=== PATIENT | female | born 1985 | race Caucasian/White ===

== ENCOUNTER 2021-10-17 15:30 | Observation (INO) | payer BC, SELFPAY ==
[2021-10-17] VITALS (7 sets, daily range): BP systolic 93–129; BP diastolic 58–85; PULSE 52–114; RESP 12–20; TEMP 36.1–38.2; O2SAT 95–100; BMI 21.8
[2021-10-17] MEDS: droperidoL 2.5 MG/ML inj IV (17:57)
[2021-10-17] MEDS: 0.9 % SODIUM CHLORIDE 1000 ml 1,000 ML IV (17:58)
[2021-10-17] MEDS: LORazepam 2 MG/ML inj 1 MG IVP (17:58)
--- NOTE | 2021-10-17 18:03 | ED.GENADULT ---
HPI - General Adult General Date Seen: 10/17/21 Chief complaint: Nausea/Vomiting Stated complaint: Vomiting Time Seen by Provider: 10/17/21 17:07 Source: patient Limitations: no limitations History of Present Illness HPI narrative: 36-year-old female presents with onset of abdominal pain and intractable vomiting starting last evening. She has had a history of chronic recurrent abdominal pain and vomiting. She has been diagnosed with cyclic vomiting, gastroparesis, lymphocytic colitis. She has had recurrent hospital visits for this. Last hospitalized here in March for complications of vomiting. No blood in the emesis. No blood in the stool. She is not aware evaluating a fever. She reports she was generally doing well yesterday until she went out last night and had pizza, Frisian fries and a vodka cranberry. After this she had abdominal pain and vomiting and it has persisted till now. she has not been able to keep anything down today. Related Data Home Medications Medication Instructions Recorded Confirmed cyclobenzaprine 10 mg tablet mg 10/17/21 Allergies Allergy/AdvReac Type Severity Reaction Status Date / Time cyclobenzaprine Allergy Verified 10/17/21 16:49 [From Flexeril] Sulfa (Sulfonamide Allergy Verified 10/17/21 16:49 Antibiotics) Review of Systems Narrative: She reports she was doing well until last evening. No respiratory illness, chest pain, urinary problems. [facility] Medical History (Updated 10/17/21 @ 22:35 by Jimmy Weston MD) Cyclic vomiting syndrome Gastroparesis Lymphocytic colitis Marijuana abuse Social History (Updated 10/17/21 @ 18:15 by Jimmy Weston MD) Narrative: History of chronic marijuana use. Exam Narrative: Exam Narrative: She appears uncomfortable moving from says sitting to lying down standing up and moving about the room. Eyes normal. Oropharynx normal. Neck is supple without mass or adenopathy. Respirations are clear to auscultation. Cardiovascular: S1, S2, regular rate and rhythm. No murmur gallop or rub. Abdomen: Bowel sounds active. Abdomen is soft. She has mild diffuse tenderness. No mass. No peritonitis. Extremities with good peripheral pulses and intact capillary refill. No edema. No rash. Const: Vital Signs, click to edit/add: Vital Signs - 24 hr 10/17/21 16:49 10/17/21 19:00 10/17/21 20:53 Temperature 96.9 F L 100.8 F H Pulse Rate [Right Pulse Oximeter] 52 L 90 114 H Respiratory Rate 18 12 18 Blood Pressure [Ri ght Upper Arm] 129/82 114/85 Pulse Oximetry 100 99 99 Documenting provider has reviewed patient's vital signs: yes Course Reevaluation(s) Reevaluation #1: Patient reports feeling better. No further vomiting. Reexamine of her abdomen shows no tenderness. Time: 20:30 Vital Signs Vital signs: Initial Vital Signs Temperature 96.9 F L 10/17/21 16:49 Temperature Source Temporal Artery Scan 10/17/21 16:49 Pulse Rate 52 L 10/17/21 16:49 Respiratory Rate 18 10/17/21 16:49 Blood Pressure 129/82 10/17/21 16:49 Blood Pressure Mean 97 10/17/21 16:49 Blood Pressure Position Sitting 10/17/21 16:49 Pulse Oximetry 100 10/17/21 16:49 Oxygen Delivery Method 10/17/21 16:49 Vital Signs Temperature 96.9 F L 10/17/21 16:49 Pulse Rate 52 L 10/17/21 16:49 Respiratory Rate 18 10/17/21 16:49 Blood Pressure 129/82 10/17/21 16:49 Pulse Oximetry 100 10/17/21 16:49 Temperature 100.8 F H 10/17/21 20:53 Pulse Rate 114 H 10/17/21 20:53 Respiratory Rate 18 10/17/21 20:53 Blood Pressure 114/85 10/17/21 20:53 Pulse Oximetry 99 10/17/21 20:53 Medical Decision Making Lab Data Labs: Lab Results 10/17/21 10/17/21 10/17/21 Range/Units 17:55 17:55 17:55 WBC 21.61 H (4.50-11.00) K/uL RBC 4.69 (4.00-5.20) m/uL Hgb 14.0 (12.0-16.0) gm/dL Hct 39.8 (33.0-51.0) % MCV 85 (80-100) fL MCH 30 (26-34) pg MCHC 35 (32-36) gm/dL RDW Coeff of Maria Guadalupe 11.9 (11.5-15.5) % Plt Count 431 (140-440) K/uL Neut % (Auto) 91.4 H (42.0-72.0) % Lymph % (Auto) 3.6 L (20-44) % [place] % (Auto) 4.5 (0.0-11.0) % Eos % (Auto) 0.0 (0.0-7.0) % Baso % (Auto) 0.1 (0.0-3.0) % Neut # (Auto) 19.80 H (1.7-7.0) K/uL Lymph # (Auto) 0.80 L (0.90-2.90) K/uL [place] # (Auto) 1.00 H (0.00-0.90) K/UL Eos # (Auto) 0.00 (0.00-0.50) K/uL Baso # (Auto) 0.00 (0.00-0.30) K/uL Abs Immat Gran (auto) 0.09 (0.00-0.30) K/uL Sodium 140 (135-149) mmol/L Potassium 3.9 (3.6-5.1) mmol/L Chloride 104 (96-114) mmol/L Carbon Dioxide 22 (20-32) mmol/L BUN 13 (5-24) mg/dL Creatinine 0.7 (0.5-1.5) mg/dL Estimated Creat Clear 103.01 Estimated GFR 114 ml/min Glucose 181 H (60-115) mg/dL Lactate 5.5 H* (0.5-1.9) mmol/L Calcium 9.6 (8.4-10.6) mg/dL Magnesium 1.8 (1.5-2.6) mg/dL Total Bilirubin 0.7 (0.1-1.5) mg/dL AST 35 (12-35) U/L ALT 64 H (4-35) U/L Alkaline Phosphatase 72 (40-150) U/L C-Reactive Protein < 0.5 L (0.5-1.0) mg/dL Total Protein 8.2 (6.0-8.3) g/dL Albumin 5.2 H (3.3-5.0) g/dL Lipase 22 L (23-300) U/L HCG, Qual (Negative) Urine Color (Yellow) Urine Appearance (Clear) Urine pH (5.0-8.5) Ur Specific [place] (1.000-1.030) Urine Protein (Negative) Urine Glucose (UA) (Negative) Urine Ketones (Negative) Urine Blood (Negative) Urine Nitrite (Negative) Urine Bilirubin (Negative) Urine Urobilinogen (0.2-1.0) Ur Leukocyte Esterase (Negative) Urine RBC (0-2) Urine WBC (0-5) Ur Squamous Epith Cells (None-Few) Urine Bacteria (None) SARS-CoV-2 (PCR) (Negative) 10/17/21 10/17/21 10/17/21 Range/Units 17:55 19:26 19:39 WBC 15.47 H (4.50-11.00) K/uL RBC 4.05 (4.00-5.20) m/uL Hgb 12.3 (12.0-16.0) gm/dL Hct 34.6 (33.0-51.0) % MCV 85 (80-100) fL MCH 30 (26-34) pg MCHC 36 (32-36) gm/dL RDW Coeff of Maria Guadalupe 12.0 (11.5-15.5) % Plt Count 326 (140-440) K/uL Neut % (Auto) 90.7 H (42.0-72.0) % Lymph % (Auto) 3.9 L (20-44) % [place] % (Auto) 4.9 (0.0-11.0) % Eos % (Auto) 0.0 (0.0-7.0) % Baso % (Auto) 0.1 (0.0-3.0) % Neut # (Auto) 14.00 H (1.7-7.0) K/uL Lymph # (Auto) 0.60 L (0.90-2.90) K/uL [place] # (Auto) 0.80 (0.00-0.90) K/UL Eos # (Auto) 0.00 (0.00-0.50) K/uL Baso # (Auto) 0.00 (0.00-0.30) K/uL Abs Immat Gran (auto) 0.06 (0.00-0.30) K/uL Sodium (135-149) mmol/L Potassium (3.6-5.1) mmol/L Chloride (96-114) mmol/L Carbon Dioxide (20-32) mmol/L BUN (5-24) mg/dL Creatinine (0.5-1.5) mg/dL Estimated Creat Clear Estimated GFR ml/min Glucose (60-115) mg/dL Lactate (0.5-1.9) mmol/L Calcium (8.4-10.6) mg/dL Magnesium (1.5-2.6) mg/dL Total Bilirubin (0.1-1.5) mg/dL AST (12-35) U/L ALT (4-35) U/L Alkaline Phosphatase (40-150) U/L C-Reactive Protein (0.5-1.0) mg/dL Total Protein (6.0-8.3) g/dL Albumin (3.3-5.0) g/dL Lipase (23-300) U/L HCG, Qual Negative (Negative) Urine Color Yellow (Yellow) Urine Appearance Clear (Clear) Urine pH 7.5 (5.0-8.5) Ur Specific [place] 1.020 (1.000-1.030) Urine Protein 1+ A (Negative) Urine Glucose (UA) Negative (Negative) Urine Ketones 4+ A (Negative) Urine Blood Negative (Negative) Urine Nitrite Negative (Negative) Urine Bilirubin Negative (Negative) Urine Urobilinogen 0.2 (0.2-1.0) Ur Leukocyte Esterase Negative (Negative) Urine RBC 0-2 (0-2) Urine WBC 0-2 (0-5) Ur Squamous Epith Cells Few (None-Few) Urine Bacteria None (None) SARS-CoV-2 (PCR) (Negative) 10/17/21 10/17/21 Range/Units 19:39 21:20 WBC (4.50-11.00) K/uL RBC (4.00-5.20) m/uL Hgb (12.0-16.0) gm/dL Hct (33.0-51.0) % MCV (80-100) fL MCH (26-34) pg MCHC (32-36) gm/dL RDW Coeff of Maria Guadalupe (11.5-15.5) % Plt Count (140-440) K/uL Neut % (Auto) (42.0-72.0) % Lymph % (Auto) (20-44) % [place] % (Auto) (0.0-11.0) % Eos % (Auto) (0.0-7.0) % Baso % (Auto) (0.0-3.0) % Neut # (Auto) (1.7-7.0) K/uL Lymph # (Auto) (0.90-2.90) K/uL [place] # (Auto) (0.00-0.90) K/UL Eos # (Auto) (0.00-0.50) K/uL Baso # (Auto) (0.00-0.30) K/uL Abs Immat Gran (auto) (0.00-0.30) K/uL Sodium (135-149) mmol/L Potassium (3.6-5.1) mmol/L Chloride (96-114) mmol/L Carbon Dioxide (20-32) mmol/L BUN (5-24) mg/dL Creatinine (0.5-1.5) mg/dL Estimated Creat Clear Estimated GFR ml/min Glucose (60-115) mg/dL Lactate 3.4 H (0.5-1.9) mmol/L Calcium (8.4-10.6) mg/dL Magnesium (1.5-2.6) mg/dL Total Bilirubin (0.1-1.5) mg/dL AST (12-35) U/L ALT (4-35) U/L Alkaline Phosphatase (40-150) U/L C-Reactive Protein (0.5-1.0) mg/dL Total Protein (6.0-8.3) g/dL Albumin (3.3-5.0) g/dL Lipase (23-300) U/L HCG, Qual (Negative) Urine Color (Yellow) Urine Appearance (Clear) Urine pH (5.0-8.5) Ur Specific [place] (1.000-1.030) Urine Protein (Negative) Urine Glucose (UA) (Negative) Urine Ketones (Negative) Urine Blood (Negative) Urine Nitrite (Negative) Urine Bilirubin (Negative) Urine Urobilinogen (0.2-1.0) Ur Leukocyte Esterase (Negative) Urine RBC (0-2) Urine WBC (0-5) Ur Squamous Epith Cells (None-Few) Urine Bacteria (None) SARS-CoV-2 (PCR) Negative SARS-CoV-2 (Negative) Discharge Plan Discharge Clinical Impression: Fever, Cyclical vomiting, intractable Patient Disposition: Admitted As Inpatient
[2021-10-17 18:09] LABS: Basophils Percent Auto 0.1 % (0.0-3.0); Hematocrit 39.8 % (33.0-51.0); Immature Granulocytes Abs Auto 0.09 K/uL (0.00-0.30); Lymphocytes Percent Auto 3.6 % (20-44); Mean Corpuscular HGB Conc 35 gm/dL (32-36); Mean Corpuscular Hemoglobin 30 pg (26-34); Mean Corpuscular Volume 85 fL (80-100); Monocytes Percent Auto 4.5 % (0.0-11.0); Neutrophils Percent Auto 91.4 % (42.0-72.0); Platelet Count* 431 K/uL (140-440); RDW Coefficient of Variation % 11.9 % (11.5-15.5); Red Blood Count 4.69 m/uL (4.00-5.20); White Blood Count* 21.61 K/uL (4.50-11.00)
[2021-10-17 18:10] LABS: Lactate* 5.5 mmol/L (0.5-1.9)
[2021-10-17 18:15] LABS: Slide Review Reflex No
[2021-10-17 18:21] LABS: Albumin* 5.2 g/dL (3.3-5.0); Chloride* 104 mmol/L (96-114)
[2021-10-17 18:22] LABS: Potassium* 3.9 mmol/L (3.6-5.1); Sodium* 140 mmol/L (135-149)
[2021-10-17 18:24] LABS: Alkaline Phosphatase* 72 U/L (40-150); Aspartate Amino Transferase* 35 U/L (12-35); Bilirubin Total* 0.7 mg/dL (0.1-1.5); Blood Urea Nitrogen* 13 mg/dL (5-24); Carbon Dioxide* 22 mmol/L (20-32); Creatinine* 0.7 mg/dL (0.5-1.5); Est. Creatinine Clearance* 103.01; Estimated Glomerular Filt Rate 114 ml/min; Lipase* 22 U/L (23-300); Total Protein* 8.2 g/dL (6.0-8.3)
[2021-10-17 18:25] LABS: Alanine Aminotransferase* 64 U/L (4-35); Calcium* 9.6 mg/dL (8.4-10.6); Glucose* 181 mg/dL (60-115); Magnesium* 1.8 mg/dL (1.5-2.6)
[2021-10-17 18:27] LABS: C Reactive Protein* < 0.5 mg/dL (0.5-1.0)
[2021-10-17 19:33] LABS: Appearance Urine Clear (Clear); Bilirubin Urine Negative (Negative); Blood Urine Negative (Negative); Color Urine Yellow (Yellow); Glucose Urine Negative (Negative); Ketones Urine 4+ (Negative); Leukocyte Esterase Urine Negative (Negative); Nitrite Urine Negative (Negative); Protein Urine 1+ (Negative); Urobilinogen Urine 0.2 (0.2-1.0); pH Urine 7.5 (5.0-8.5)
[2021-10-17] MEDS: LACTATED RINGERS 1000 ML 1,000 ML IV (19:33)
[2021-10-17 19:41] LABS: Lactate* 3.4 mmol/L (0.5-1.9)
[2021-10-17 19:47] LABS: Basophils Percent Auto 0.1 % (0.0-3.0); Hematocrit 34.6 % (33.0-51.0); Hemoglobin* 12.3 gm/dL (12.0-16.0); Immature Granulocytes Abs Auto 0.06 K/uL (0.00-0.30); Lymphocytes Percent Auto 3.9 % (20-44); Mean Corpuscular HGB Conc 36 gm/dL (32-36); Mean Corpuscular Hemoglobin 30 pg (26-34); Mean Corpuscular Volume 85 fL (80-100); Monocytes Percent Auto 4.9 % (0.0-11.0); Neutrophils Percent Auto 90.7 % (42.0-72.0); Platelet Count* 326 K/uL (140-440); Red Blood Count 4.05 m/uL (4.00-5.20); White Blood Count* 15.47 K/uL (4.50-11.00)
[2021-10-17 19:47] LABS: RBC Urine 0-2 (0-2); Squamous Epithelial Cell Urine Few (None-Few); WBC Urine 0-2 (0-5)
[2021-10-17 19:50] LABS: Slide Review Reflex No
[2021-10-17 21:32] LABS: HCG Qualitative Serum* Negative (Negative)
[2021-10-17] MEDS: PROMETHAZINE 25 MG/ML INJ 12.5 MG IVP (21:34)
[2021-10-17 22:23] LABS: SARS PCR* Negative SARS-CoV-2 (Negative)
--- NOTE | 2021-10-17 22:48 | P.IMHP_ITS ---
Hospitalist- H&P: HPI History of Present Illness Time Seen by Provider: 22:48 Date Seen: 10/17/21 Chief complaint: Vomiting Narrative: Tamia Peterson is a 36 year old female who presented to the emergency room today for intractable vomiting. She has a known history of cyclic vomiting syndrome, notes that this is a typical presentation for a flare. She follows with [facility], has been found to have some mild gastroparesis, and is to be following a specific diet. Ate at [employer] last night and had pizza with a vodka cranberry drink (not typical for her), had symptoms immediately thereafter. Her primary symptom is vomiting, although she has had some intermittent diarrhea. She has had no blood per rectum or hematemesis. She has no other signs or symptoms of illness, no recent travel, and no one at home is ill. She had a mild headache this morning that has resolved with IV fluids, she denies any acute skin concerns, and has no dysuria. ER course and findings: - Temperature of 100.8? (patient does not feel that she was febrile, denies any lateralizing symptoms of illness) - elevated white blood count and lactate (both improved after IV fluid administration) - normal potassium (often is hypokalemic with these episodes) - reassuring UA with the exception of ketones (treated for a UTI with PCP in August, + bacteriuria at that time, was symptomatic) - in addition to IV fluids, given droperidol, Phenergan, and lorazepam with mild relief, but was still unable to tolerate any po intake without immediately vomiting Patient's medical history includes cyclic vomiting syndrome, related to cannabis use. She had stopped using in March, but started smoking again this spring after being diagnosed with melanoma ([facility]). She sees [facility], and last saw them in August of 2021. At that time Phenergan was recommended as a pretreatment prior to eating dinner, in addition to famotidine at bedtime, and a to specific gastroparesis diet. She also has a history of IBS, remote history of lymphocytic colitis, and is a . LMP was last week. She is s/p appendectomy. Tamia lives locally with her and has 3 children, the youngest of whom is 9. She does not smoke tobacco products, uses marijuana regularly, rare alcohol use. She cleans houses for a living. Review of Systems Status of ROS: Reports: 10 or more systems reviewed and unremarkable except as noted in History and below [facility] Medical History (Updated 10/17/21 @ 23:14 by Abiola Cardenas MD) Cyclic vomiting syndrome Gastroparesis Lymphocytic colitis Marijuana abuse Social History (Updated 10/17/21 @ 18:15 by Jimmy Weston MD) Narrative: History of chronic marijuana use. Meds Home Medications and Allergies Home Medications Medication Instructions Recorded Confirmed Type cyclobenzaprine 10 mg tablet mg 10/17/21 History Allergies Allergy/AdvReac Type Severity Reaction Status Date / Time cyclobenzaprine Allergy Verified 10/17/21 16:49 [From Flexeril] Sulfa (Sulfonamide Allergy Verified 10/17/21 16:49 Antibiotics) Exam Narrative: Exam Narrative: GEN: Alert and laying in hospital bed, does not appear toxic, but is sleepy HEENT: Normal external ears, EOMIs bilaterally, no scleral icterus CV: RRR, No concerning murmurs, rubs, or gallops R: LCTA bilaterally without concerning wheezing, rales, or rhonchi Abdomen: Soft, no discomfort with moderate palpation, no rebound or guarding. Bowel sounds present Ext: wwp, no concerning edema Skin: No concerning skin lesions or rashes on exposed skin. Scar on upper back from recent melanoma excision appears well healed without signs or symptoms of cellulitis Neuro: Nonfocal, no resting tremor Psych: Appropriate Const: Vital Signs, click to edit/add: Vital Signs - 24 hr 10/17/21 16:49 10/17/21 19:00 10/17/21 20:53 Temperature 96.9 F L 100.8 F H Pulse Rate [Right Pulse Oximeter] 52 L 90 114 H Respiratory Rate 18 12 18 Blood Pressure [Ri ght Upper Arm] 129/82 114/85 Pulse Oximetry 100 99 99 Hospitalist - H&P: Result Labs Labs: Short CBC 10/17/21 10/17/21 Range/Units 17:55 19:39 WBC 21.61 H 15.47 H (4.50-11.00) K/uL Hgb 14.0 12.3 (12.0-16.0) gm/dL Hct 39.8 34.6 (33.0-51.0) % Plt Count 431 326 (140-440) K/uL [facility] 10/17/21 17:55 Sodium 140 Potassium 3.9 Chloride 104 Carbon Dioxide 22 BUN 13 Creatinine 0.7 Glucose 181 H Calcium 9.6 Liver Function 10/17/21 Range/Units 17:55 Total Bilirubin 0.7 (0.1-1.5) mg/dL AST 35 (12-35) U/L ALT 64 H (4-35) U/L Alkaline Phosphatase 72 (40-150) U/L Albumin 5.2 H (3.3-5.0) g/dL Urine 10/17/21 Range/Units 19:26 Urine Color Yellow (Yellow) Urine Appearance Clear (Clear) Urine pH 7.5 (5.0-8.5) Ur Specific [place] 1.020 (1.000-1.030) Urine Protein 1+ A (Negative) Urine Glucose (UA) Negative (Negative) Assessment and Plan Assessment and plan (1) Cyclical vomiting, intractable: Status: Acute (2) Fever: Status: Acute (3) Leukocytosis: Status: Acute Plan 36-year-old female with acute on chronic cyclic vomiting syndrome: 1. CVS: Treat with IV fluids and antiemetics. Continue to recommend cessation of marijuana. Normal potassium in the ER, will continue to follow electrolytes. 2. Fever, leukocytosis, and elevated lactate: No signs or symptoms of acute illness. Labs improved after administration of IVFs. She and both state that this is a very classic presentation for her typical CVS flare. COVID test was negative, she has no other history or findings on exam that suggest an infectious process, although we will watch her very closely and initiate antibiotics if clinical status were to change. 3. Ppx: SCDs, ambulation 4. Full Code.
[2021-10-18] VITALS (7 sets, daily range): BP systolic 98–114; BP diastolic 49–75; PULSE 56–83; RESP 16; TEMP 36.6–36.9; O2SAT 96–100
[2021-10-18] MEDS: 0.9 % SODIUM CHLORIDE 1000 ml 1,000 ML 125 ML IV ×3 (00:09→22:29)
--- NOTE | 2021-10-18 06:32 | PC.NURSE ---
END OF SHIFT NOTE: PT ARRIVED TO FLOOR @3980 ACCOMPANIED BY Geeta CHEN. PT C/O NAUSEA. LSCTA. PT DENIES CHEST PAIN AND SOB. PT FATIGUED; FALLING ASLEEP DURING ADMISSION ASSESSMENT. 20 GAUGE RIGHT AC IV INFILTRATED AND DC'D @0530. VSS ON RA. AFEBRILE. DIET ADVANCE TOLERATED. Geeta APRIL CODE . PT SHOWERED THIS AM.
[2021-10-18 07:10] LABS: Lactate* 0.8 mmol/L (0.5-1.9)
[2021-10-18 07:12] LABS: Basophils Percent Auto 0.1 % (0.0-3.0); Eosinophils Percent Auto 0.1 % (0.0-7.0); Hematocrit 34.8 % (33.0-51.0); Immature Granulocytes Abs Auto 0.06 K/uL (0.00-0.30); Lymphocytes Percent Auto 15.8 % (20-44); Mean Corpuscular HGB Conc 35 gm/dL (32-36); Mean Corpuscular Hemoglobin 30 pg (26-34); Mean Corpuscular Volume 86 fL (80-100); Monocytes Percent Auto 9.8 % (0.0-11.0); Neutrophils Percent Auto 73.9 % (42.0-72.0); Platelet Count* 347 K/uL (140-440); RDW Coefficient of Variation % 12.2 % (11.5-15.5); Red Blood Count 4.04 m/uL (4.00-5.20); White Blood Count* 17.51 K/uL (4.50-11.00)
[2021-10-18 07:14] LABS: Slide Review Reflex No
[2021-10-18 07:37] LABS: Albumin* 4.1 g/dL (3.3-5.0); Chloride* 109 mmol/L (96-114); Potassium* 3.6 mmol/L (3.6-5.1); Sodium* 138 mmol/L (135-149)
[2021-10-18 07:39] LABS: Bilirubin Total* 0.5 mg/dL (0.1-1.5); Carbon Dioxide* 21 mmol/L (20-32); Creatinine* 0.5 mg/dL (0.5-1.5); Est. Creatinine Clearance* 144.21; Estimated Glomerular Filt Rate 124 ml/min
[2021-10-18 07:40] LABS: Alanine Aminotransferase* 14 U/L (4-35); Alkaline Phosphatase* 55 U/L (40-150); Aspartate Amino Transferase* 22 U/L (12-35); Blood Urea Nitrogen* 12 mg/dL (5-24); Calcium* 8.5 mg/dL (8.4-10.6); Glucose* 108 mg/dL (60-115); Total Protein* 6.6 g/dL (6.0-8.3)
[2021-10-18] MEDS: ONDANSETRON 2 MG/ML inj 4 MG IVP ×3 (10:35→22:30)
--- NOTE | 2021-10-18 15:16 | PM.IMPN1 ---
Progress Note: A&P Assessment and plan (1) Cyclical vomiting, intractable: Status: Acute Assessment and Plan: Most likely related to marijuana exposure. May be a small element of mild gastroparesis. Again discussed the importance of her not having exposure to marijuana. She minimizes this possible link to her cyclic nausea and vomiting. Continue with IV fluids. Anesthesia was able to establish a more secure IV site. Continue with efforts to increase her oral intake. (2) Fever: Status: Acute Assessment and Plan: Resolved now. (3) Leukocytosis: Status: Acute Assessment and Plan: Still noteworthy. Will need ongoing monitoring. Plan Patient agreeable with above stated plans and recommendations for now. Continue with efforts to support her oral intake. Nutritional consultation. Time Spent With Patient Total time spent: 30 minutes Subjective Time Seen by Provider: 10:30 Date Seen: 10/18/21 Interval history: Has not had any further episodes of vomiting or retching. Still has a sense of nausea. Was able to tolerate 3 sips of water earlier today. IV was lost overnight. Unable to achieve IV access after 8 attempts overnight. Patient provides me with information suggesting that she now has gastroparesis and is seeing a subspecialists for this. Outside medical records reviewed briefly and suggest possible mild gastroparesis, idiopathic. Exam Narrative: Exam Narrative: Awake, alert, oriented to self, place, time, situation. No acute distress. Articulate. Minimizes the exposure she has had to marijuana. More focus on the gastro paresis diagnosis. Lungs clear to auscultation. Heart tones with regular rhythm. Abdomen with active bowel sounds, soft, nontender. Independent transfer, station, and gait. No dependent edema. Skin warm, dry, intact. No petechiae, rashes, cyanosis, or jaundice. Const: Vital Signs, click to edit/add: Vital Signs - 24 hr 10/17/21 16:49 10/17/21 19:00 10/17/21 20:53 Temperature 96.9 F L 100.8 F H Pulse Rate [Pulse Oximeter] Pulse Rate [Right Pulse Oximeter] 52 L 90 114 H Pulse Rate [orthos tatic lying Left] Pulse Rate [orthos tatic sitting Left ] Pulse Rate [orthos tatic standing Lef t] Respiratory Rate 18 12 18 Blood Pressure [Le ft Arm] Blood Pressure [Ri ght Upper Arm] 129/82 114/85 Blood Pressure [or thostatic lying Le ft Arm] Blood Pressure [or thostatic sitting Left Arm] Blood Pressure [or thostatic standing Left Arm] Pulse Oximetry 100 99 99 10/17/21 21:30 10/17/21 23:35 10/17/21 23:45 Temperature 99.7 F H 99.7 F H Pulse Rate [Pulse Oximeter] 72 72 Pulse Rate [Right Pulse Oximeter] 102 H Pulse Rate [orthos tatic lying Left] Pulse Rate [orthos tatic sitting Left ] Pulse Rate [orthos tatic standing Lef t] Respiratory Rate 20 20 20 Blood Pressure [Le ft Arm] 93/58 L 93/58 L Blood Pressure [Ri ght Upper Arm] 101/64 Blood Pressure [or thostatic lying Le ft Arm] Blood Pressure [or thostatic sitting Left Arm] Blood Pressure [or thostatic standing Left Arm] Pulse Oximetry 98 95 95 10/17/21 23:59 10/18/21 03:15 10/18/21 07:00 Temperature 98.5 F 98.2 F Pulse Rate [Pulse Oximeter] 83 60 Pulse Rate [Right Pulse Oximeter] Pulse Rate [orthos tatic lying Left] Pulse Rate [orthos tatic sitting Left ] Pulse Rate [orthos tatic standing Lef t] Respiratory Rate 20 16 16 Blood Pressure [Le ft Arm] 103/66 109/75 Blood Pressure [Ri ght Upper Arm] Blood Pressure [or thostatic lying Le ft Arm] Blood Pressure [or thostatic sitting Left Arm] Blood Pressure [or thostatic standing Left Arm] Pulse Oximetry 95 96 99 10/18/21 07:57 10/18/21 11:00 Temperature 98 F Pulse Rate [Pulse Oximeter] 56 L Pulse Rate [Right Pulse Oximeter] Pulse Rate [orthos tatic lying Left] 69 Pulse Rate [orthos tatic sitting Left ] 60 Pulse Rate [orthos tatic standing Lef t] 72 Respiratory Rate 16 Blood Pressure [Le ft Arm] 110/49 L Blood Pressure [Ri ght Upper Arm] Blood Pressure [or thostatic lying Le ft Arm] 104/68 Blood Pressure [or thostatic sitting Left Arm] 109/75 Blood Pressure [or thostatic standing Left Arm] 114/65 Pulse Oximetry 99 Labs Labs: Laboratory Results - last 24 hr 10/17/21 10/17/21 10/17/21 17:55 17:55 17:55 WBC 21.61 H RBC 4.69 Hgb 14.0 Hct 39.8 MCV 85 MCH 30 MCHC 35 RDW Coeff of Maria Guadalupe 11.9 Plt Count 431 Neut % (Auto) 91.4 H Lymph % (Auto) 3.6 L [place] % (Auto) 4.5 Eos % (Auto) 0.0 Baso % (Auto) 0.1 Neut # (Auto) 19.80 H Lymph # (Auto) 0.80 L [place] # (Auto) 1.00 H Eos # (Auto) 0.00 Baso # (Auto) 0.00 Abs Immat Gran (auto) 0.09 Sodium 140 Potassium 3.9 Chloride 104 Carbon Dioxide 22 BUN 13 Creatinine 0.7 Estimated Creat Clear 103.01 Estimated GFR 114 Glucose 181 H Lactate 5.5 H* Calcium 9.6 Magnesium 1.8 Total Bilirubin 0.7 AST 35 ALT 64 H Alkaline Phosphatase 72 C-Reactive Protein < 0.5 L Total Protein 8.2 Albumin 5.2 H Lipase 22 L HCG, Qual Urine Color Urine Appearance Urine pH Ur Specific [place] Urine Protein Urine Glucose (UA) Urine Ketones Urine Blood Urine Nitrite Urine Bilirubin Urine Urobilinogen Ur Leukocyte Esterase Urine RBC Urine WBC Ur Squamous Epith Cells Urine Bacteria SARS-CoV-2 (PCR) 10/17/21 10/17/21 10/17/21 17:55 19:26 19:39 WBC 15.47 H RBC 4.05 Hgb 12.3 Hct 34.6 MCV 85 MCH 30 MCHC 36 RDW Coeff of Maria Guadalupe 12.0 Plt Count 326 Neut % (Auto) 90.7 H Lymph % (Auto) 3.9 L [place] % (Auto) 4.9 Eos % (Auto) 0.0 Baso % (Auto) 0.1 Neut # (Auto) 14.00 H Lymph # (Auto) 0.60 L [place] # (Auto) 0.80 Eos # (Auto) 0.00 Baso # (Auto) 0.00 Abs Immat Gran (auto) 0.06 Sodium Potassium Chloride Carbon Dioxide BUN Creatinine Estimated Creat Clear Estimated GFR Glucose Lactate Calcium Magnesium Total Bilirubin AST ALT Alkaline Phosphatase C-Reactive Protein Total Protein Albumin Lipase HCG, Qual Negative Urine Color Yellow Urine Appearance Clear Urine pH 7.5 Ur Specific [place] 1.020 Urine Protein 1+ A Urine Glucose (UA) Negative Urine Ketones 4+ A Urine Blood Negative Urine Nitrite Negative Urine Bilirubin Negative Urine Urobilinogen 0.2 Ur Leukocyte Esterase Negative Urine RBC 0-2 Urine WBC 0-2 Ur Squamous Epith Cells Few Urine Bacteria None SARS-CoV-2 (PCR) 10/17/21 10/17/21 10/18/21 19:39 21:20 06:47 WBC 17.51 H RBC 4.04 Hgb 12.0 Hct 34.8 MCV 86 MCH 30 MCHC 35 RDW Coeff of Maria Guadalupe 12.2 Plt Count 347 Neut % (Auto) 73.9 H Lymph % (Auto) 15.8 L [place] % (Auto) 9.8 Eos % (Auto) 0.1 Baso % (Auto) 0.1 Neut # (Auto) 12.90 H Lymph # (Auto) 2.80 [place] # (Auto) 1.70 H Eos # (Auto) 0.00 Baso # (Auto) 0.00 Abs Immat Gran (auto) 0.06 Sodium Potassium Chloride Carbon Dioxide BUN Creatinine Estimated Creat Clear Estimated GFR Glucose Lactate 3.4 H Calcium Magnesium Total Bilirubin AST ALT Alkaline Phosphatase C-Reactive Protein Total Protein Albumin Lipase HCG, Qual Urine Color Urine Appearance Urine pH Ur Specific [place] Urine Protein Urine Glucose (UA) Urine Ketones Urine Blood Urine Nitrite Urine Bilirubin Urine Urobilinogen Ur Leukocyte Esterase Urine RBC Urine WBC Ur Squamous Epith Cells Urine Bacteria SARS-CoV-2 (PCR) Negative SARS-CoV-2 10/18/21 10/18/21 06:47 06:47 WBC RBC Hgb Hct MCV MCH MCHC RDW Coeff of Maria Guadalupe Plt Count Neut % (Auto) Lymph % (Auto) [place] % (Auto) Eos % (Auto) Baso % (Auto) Neut # (Auto) Lymph # (Auto) [place] # (Auto) Eos # (Auto) Baso # (Auto) Abs Immat Gran (auto) Sodium 138 Potassium 3.6 Chloride 109 Carbon Dioxide 21 BUN 12 Creatinine 0.5 Estimated Creat Clear 144.21 Estimated GFR 124 Glucose 108 Lactate 0.8 Calcium 8.5 Magnesium Total Bilirubin 0.5 AST 22 ALT 14 Alkaline Phosphatase 55 C-Reactive Protein Total Protein 6.6 Albumin 4.1 Lipase HCG, Qual Urine Color Urine Appearance Urine pH Ur Specific [place] Urine Protein Urine Glucose (UA) Urine Ketones Urine Blood Urine Nitrite Urine Bilirubin Urine Urobilinogen Ur Leukocyte Esterase Urine RBC Urine WBC Ur Squamous Epith Cells Urine Bacteria SARS-CoV-2 (PCR)
--- NOTE | 2021-10-18 17:27 | PC.NURSE ---
Addendum entered by Ivelisse Aguilar RN 10/18/21 18:38: After eating dinner patient had an emesis of 500, both antiemetics given, and 4 mg of morphine, patient now resting in bed. Original Note: End of Shift: Patient pleasant and cooperative. Patient vitally stable, lungs clear, BS WNL, IV running NS at 125. Patient denies pain and nausea. Patient is independent in room. Zophran was given today before first meal for preventative measure. Patient ate 75% of lunch and 50% of dinner, patient ordered liquid foods. Patient does report a lot of stomach gargling and churnning. IV was accessed by anesthesia in right forearm. Patient has otherwise been napping majority of day.
[2021-10-18] MEDS: LORazepam 2 MG/ML inj 0.5 MG IVP ×2 (18:08→22:29)
[2021-10-18] MEDS: PROMETHAZINE 25 MG/ML INJ 12.5 MG IVP (18:08)
[2021-10-18] MEDS: MORPHINE 4 MG/ML INJ IVP (18:22)
[2021-10-19 03:00] VITALS: BP 113/60; PULSE 56; RESP 18; TEMP 36.8; O2SAT 99
[2021-10-19] MEDS: 0.9 % SODIUM CHLORIDE 1000 ml 1,000 ML 125 ML IV ×2 (06:20→14:57)
[2021-10-19 07:00] VITALS: BP 112/72; PULSE 58; RESP 16; TEMP 36.7; O2SAT 98
[2021-10-19 07:38] LABS: Basophils Absolute Auto 0.03 K/uL (0.00-0.30); Basophils Percent Auto 0.3 % (0.0-3.0); Eosinophils Absolute Auto 0.07 K/uL (0.00-0.50); Eosinophils Percent Auto 0.8 % (0.0-7.0); Hematocrit 31.6 % (33.0-51.0); Immature Granulocytes Abs Auto 0.02 K/uL (0.00-0.30); Lymphocytes Absolute Auto 2.45 K/uL (0.90-2.90); Lymphocytes Percent Auto 28.5 % (20-44); Mean Corpuscular HGB Conc 35 gm/dL (32-36); Mean Corpuscular Hemoglobin 30 pg (26-34); Mean Corpuscular Volume 87 fL (80-100); Monocytes Percent Auto 7.6 % (0.0-11.0); Neutrophils Absolute Auto 5.38 K/uL (1.7-7.0); Neutrophils Percent Auto 62.6 % (42.0-72.0); Platelet Count* 246 K/uL (140-440); RDW Coefficient of Variation % 12.2 % (11.5-15.5); Red Blood Count 3.62 m/uL (4.00-5.20)
[2021-10-19 07:48] LABS: Slide Review Reflex No
[2021-10-19 07:50] LABS: Albumin* 3.2 g/dL (3.3-5.0); Chloride* 110 mmol/L (96-114); Potassium* 3.5 mmol/L (3.6-5.1); Sodium* 137 mmol/L (135-149)
[2021-10-19 07:53] LABS: Blood Urea Nitrogen* 9 mg/dL (5-24); Calcium* 7.7 mg/dL (8.4-10.6); Carbon Dioxide* 25 mmol/L (20-32); Creatinine* 0.6 mg/dL (0.5-1.5); Est. Creatinine Clearance* 120.18; Estimated Glomerular Filt Rate 118 ml/min; Glucose* 88 mg/dL (60-115); Phosphorus* 2.1 mg/dL (2.5-4.5)
--- NOTE | 2021-10-19 08:10 | PC.NURSE ---
END OF SHIFT NOTE: PT PLEASANT AND COOPERATIVE. PT AMBULATES INDEPENDENTLY. PT DENIES CHEST PAIN AND SOB. LSCTA. C/O NAUSEA WITH RELIEF FROM ZOFRAN. 0.9% NS IV FLUIDS RUNNING @125ML/HR. A&O X3. PT NIGHT UNEVENTFUL. VSS ON RA.
[2021-10-19] MEDS: ONDANSETRON 2 MG/ML inj 4 MG IVP (08:24)
[2021-10-19 11:00] VITALS: BP 113/75; PULSE 57; RESP 18; TEMP 36.6; O2SAT 99
[2021-10-19] MEDS: POTASSIUM BICARB 25 MEQ EFFERVESCENT TAB PO ×2 (11:59→15:01)
[2021-10-19] MEDS: OLANZapine 5 MG TAB.RAPDIS PO ×2 (12:00→23:00)
[2021-10-19 15:00] VITALS: BP 110/71; PULSE 54; RESP 16; TEMP 36.7; O2SAT 99
--- NOTE | 2021-10-19 15:53 | PM.IMPN1 ---
Progress Note: A&P Assessment and plan (1) Cyclical vomiting, intractable: Status: Acute Assessment and Plan: 1. Possibly multifactorial. I am still of the opinion that most of her symptoms are related to cannabis hyperemesis syndrome. May be an element of gastroparesis. The fact that she responded to the olanzapine lends credence to the possibility that the cannabis hyperemesis syndrome is certainly playing a major role in her presentation. 2. Continue with current supportive efforts. (2) Fever: Status: Acute Assessment and Plan: 1. No longer problematic. (3) Leukocytosis: Status: Acute Assessment and Plan: 1. Resolved. Plan 1. Reviewed with patient. Answered her questions. 2. She is agreeable with above stated plans and recommendations. Subjective Time Seen by Provider: 11:00 Date Seen: 10/19/21 Interval history: Hospital day number 3. Only improving very slightly overnight. In the daytime I gave her olanzapine 5 mg oral dissolving tab. Remarkably subsequently she was able to eat a banana and applesauce without nausea or vomiting. Tolerating increased activities. Still on IV fluids. Denies chest heaviness, pressure, tightness, or pain. Denies diarrhea or constipation. Denies dysuria, urgency, frequency, hematuria. No syncope or near syncope. No orthostasis. Still anxious. Wonders if she should take her antiemetic preemptively to try to prevent any such episodes before she attempts to eat or drink. Exam Narrative: Exam Narrative: Appears in no acute distress. Alert, oriented to self, place, time, situation. Articulate. Lungs clear to auscultation. Heart tones with regular rhythm normal S1-S2. Abdomen with active bowel sounds, soft, nontender. Extremities without edema. Independent transfer, station, and gait. No tremor, asterixis, or ataxia. Const: Vital Signs, click to edit/add: Vital Signs - 24 hr 10/18/21 21:10 10/18/21 23:00 10/18/21 23:00 Temperature 98.4 F 97.9 F Pulse Rate [Pulse Oximeter] 61 57 L 57 L Respiratory Rate 16 16 16 Blood Pressure [Le ft Arm] 98/68 110/75 Pulse Oximetry 98 100 Oxygen Delivery Me thod Room Air Room Air 10/19/21 03:00 10/19/21 07:00 10/19/21 11:00 Temperature 98.2 F 98.0 F 97.9 F Pulse Rate [Pulse Oximeter] 56 L 58 L 57 L Respiratory Rate 18 16 18 Blood Pressure [Le ft Arm] 113/60 112/72 113/75 Pulse Oximetry 99 98 99 Oxygen Delivery Me thod Room Air Room Air Room Air Documenting provider has reviewed patient's vital signs: yes Labs Labs: Laboratory Results - last 24 hr 10/19/21 10/19/21 07:11 07:11 WBC 8.60 RBC 3.62 L Hgb 11.0 L Hct 31.6 L MCV 87 MCH 30 MCHC 35 RDW Coeff of Maria Guadalupe 12.2 Plt Count 246 Neut % (Auto) 62.6 Lymph % (Auto) 28.5 Andrews % (Auto) 7.6 Eos % (Auto) 0.8 Baso % (Auto) 0.3 Neut # (Auto) 5.38 Lymph # (Auto) 2.45 Andrews # (Auto) 0.70 Eos # (Auto) 0.07 Baso # (Auto) 0.03 Abs Immat Gran (auto) 0.02 Sodium 137 Potassium 3.5 L Chloride 110 Carbon Dioxide 25 BUN 9 Creatinine 0.6 Estimated Creat Clear 120.18 Estimated GFR 118 Glucose 88 Calcium 7.7 L Phosphorus 2.1 L Albumin 3.2 L
[2021-10-19] MEDS: ONDANSETRON ODT 4 MG TAB PO (18:57)
[2021-10-19 19:00] VITALS: BP 108/69; PULSE 69; RESP 24; TEMP 36.9; O2SAT 100
[2021-10-19] MEDS: LORazepam 0.5 MG TABLET PO (19:05)
--- NOTE | 2021-10-19 19:37 | PC.NURSE ---
Pt up independently. Denies pain and nausea most of day. Slept and showered. Ate apple sauce and banana for lunch. IV infiltrated, pt extremely anxious. @ 1820, telephone order from Dr. Cardenas to leave out IV to assess patients ability to take in food and fluids PO. Pt walked olivo with 200 feet. Returned to room and stated she felt nauseated. Phoned Dr. Cardenas, medication orders revised to PO. Pt got into shower, PO Zofran and Ativan given. Night nurse will reasess pt and update Dr. Cardenas.
[2021-10-19] MEDS: PROMETHAZINE 25 MG/ML INJ 12.5 MG IVP (19:55)
[2021-10-19] MEDS: LORazepam 2 MG/ML inj 0.5 MG IVP (20:50)
[2021-10-19 23:00] VITALS: BP 110/72; PULSE 60; RESP 24; TEMP 36.8; O2SAT 100
[2021-10-20] MEDS: 0.9 % SODIUM CHLORIDE 1000 ml 1,000 ML 125 ML IV ×3 (01:08→15:14)
[2021-10-20] MEDS: LORazepam 2 MG/ML inj 0.5 MG IVP (02:32)
[2021-10-20] MEDS: ONDANSETRON ODT 4 MG TAB PO ×3 (02:32→20:52)
[2021-10-20 02:46] VITALS: BP 104/71; PULSE 67; RESP 24; TEMP 37; O2SAT 100
--- NOTE | 2021-10-20 06:19 | PC.NURSE ---
pt pleasant and cooperative. Tolerating reg diet. A x 1 with gb and walker, tolerating well. c/o sore throat ? hot tea & throat lozenges given, with relief. c/o pain in right hip to knee 05/28, PRN 5mg Oxy x 2 & scheduled Tylenol given. Pt having difficulty sleeping, PRN Benadryl given & white noise machine at bedside. Active ice to op site, dressing CDI. VSS and WNL. LS CTA. Teds & SCDs to [facility]. ?
--- NOTE | 2021-10-20 06:24 | PC.NURSE ---
: indep in room. Calls appropriately. Pt only tolerating sips of fluids.?c/o severe nausea & vomiting, pt retching at bedside.?pt?requested IV access for IV antinausea medication at 1930, pt stated it offers more relief than PO medications, OK?d by , IV access reestablished at 1949?in left hand, see eMar for meds given,?IV fluids running at 125. Aqua K pack applied to pts abdomen to aid in nausea relief. ?? ? Olanzapine given at 2300, pt able to rest, woke at 0230? w/ nausea & retching at bedside, pt requested IV medication, ?the combination of three medications worked for me last night?, typewriter operator automatic insisted trying ODT Zofran and Ativan, pt opted for IV Ativan, since admin pt has been resting comfortably. LS CTA. Bowel sounds active. VSS. Afebrile. ?
[2021-10-20 08:06] VITALS: BP 95/49; PULSE 72; RESP 16; TEMP 36.8; O2SAT 96
--- NOTE | 2021-10-20 08:25 | CRLHL7_ITS ---
For Patients: As a result of the Century Cures Act, medical imaging exams and procedure reports are released immediately into your electronic medical record. You may view this report before your referring provider. If you have questions, please contact your health care provider. INDICATION: Nausea and vomiting. COMPARISON: : 31 May 2018 TECHNIQUE: Two view abdomen. FINDINGS: The bowel gas pattern appears normal. There is no evidence of free intraperitoneal air or soft tissue mass effect. There are no pathologic calcifications. IMPRESSION: Negative abdomen. Dictated by Panda Kiran MD @ 10/20/2021 9:03:28 AM (Electronically Signed)
[2021-10-20 11:30] VITALS: BP 97/52; PULSE 77; RESP 16; TEMP 37; O2SAT 100
--- NOTE | 2021-10-20 11:50 | P.IMPN_ITS ---
Progress Note: A&P Assessment and plan (1) Cyclical vomiting, intractable: Status: Acute Assessment and Plan: 1. Most likely related to cannabis hyperemesis syndrome. The gastroparesis noted previously may be playing a smaller part in this. 2. I ordered a upper GI small-bowel follow-through today. Unfortunately our radiology department is not able to carry this out until tomorrow. 3. Interesting that patient states that she is having these episodes of retching and nausea but our nursing staff are not seeing that. 4. Will attempt scheduling medicines to see if that helps. Will schedule olanzapine 5 mg twice daily, ondansetron 4 mg twice daily, lorazepam 0.5 mg twice daily. 5. Continue with other p.r.n. antiemetic medications. 6. Continue with IV fluids for now until such time as she is consuming adequately. (2) Leukocytosis: Status: Acute Assessment and Plan: 1. Resolved (3) Fever: Status: Acute Assessment and Plan: 1. Resolved (4) Gastroparesis: Problem details: Delayed gastric emptying on nuclear medicine test 2021 [facility] Consultation with haulpak driver 09/04/2021. Recommended Phenergan 12.5 mg before meals, gastroparesis diet, reducing marijuana use. Status: Acute Assessment and Plan: 1. Check upper GI small-bowel follow-through tomorrow. (5) Marijuana abuse: Status: Acute Assessment and Plan: 1. Most likely cause of her vomiting and retching. (6) Anxiety: Status: Acute Assessment and Plan: 1. Add scheduled lorazepam 0.5 mg twice daily. Time Spent With Patient Total time spent: 1. Reviewed above with patient. Answered her questions. She is agreeable to stated plans and recommendations. 2. Continue monitor labs. Subjective Time Seen by Provider: 10:00 Date Seen: 10/20/21 Interval history: Hospital day 4. Patient tells us that she was up much of the night retching off and on. The nurse who was on with her never saw any actual retching or vomitus. Patient indicates that she had very little sleep last night. Denies abdominal pain or distention. Denies any cough or shortness of breath. Denies any chest pressure, heaviness, tightness, or pain. Acknowledges some dyspepsia. Denies dysphagia or odynophagia. Acknowledges anxiety about eating or drinking. Denies abdominal pain. Exam Narrative: Exam Narrative: I awaken her in the morning by entering her room in calling out her name. She awakens easily. No acute distress. Articulate. Cooperative. Appears tired. Alert, oriented to self, place, time, situation. Mood and affect are congruent. Lungs clear to auscultation. No CVA tenderness. Heart tones with regular rhythm, normal S1-S2. No murmur, gallop, or rub. Abdomen with active bowel sounds, soft, nontender. No distention. No rebound or guarding. Extremities without edema. Palpable pulses upper and lower extremities. Skin is warm, dry, intact. Independent transfer, station, and gait. No tremor, asterixis, or ataxia. Const: Vital Signs, click to edit/add: Vital Signs - 24 hr 10/19/21 15:00 10/19/21 15:00 10/19/21 19:00 Temperature 98.1 F 98.5 F Pulse Rate [Pulse Oximeter] 54 L 54 L 69 Respiratory Rate 16 16 24 Blood Pressure [Le ft Arm] 110/71 108/69 Pulse Oximetry 99 100 Oxygen Delivery Me thod Room Air Room Air 10/19/21 23:00 10/19/21 23:00 10/20/21 02:46 Temperature 98.3 F 98.6 F Pulse Rate [Pulse Oximeter] 60 60 67 Respiratory Rate 24 24 24 Blood Pressure [Le ft Arm] 110/72 104/71 Pulse Oximetry 100 100 Oxygen Delivery Tn thod Room Air Room Air 10/20/21 08:06 10/20/21 11:30 Temperature 98.2 F 98.6 F Pulse Rate [Pulse Oximeter] 72 77 Respiratory Rate 16 16 Blood Pressure [Le ft Arm] 95/49 L 97/52 L Pulse Oximetry 96 100 Oxygen Delivery Tn thod Room Air Room Air Documenting provider has reviewed patient's vital signs: yes Imaging Abdominal x-ray: Attestation: I have reviewed the pertinent imaging results. Radiologist's impression: No abnormalities noted. No dilated loops of bowel or stomach. No free air.
[2021-10-20] MEDS: LORazepam 0.5 MG TABLET PO ×2 (12:52→20:52)
[2021-10-20] MEDS: FAMOTIDINE 20 MG TABLET PO ×2 (12:53→20:52)
[2021-10-20] MEDS: OLANZapine 5 MG TAB.RAPDIS PO ×2 (12:53→20:52)
[2021-10-20 14:04] LABS: Hematocrit 33.1 % (33.0-51.0); Hemoglobin* 11.7 gm/dL (12.0-16.0); Mean Corpuscular HGB Conc 35 gm/dL (32-36); Mean Corpuscular Hemoglobin 30 pg (26-34); Mean Corpuscular Volume 85 fL (80-100); Platelet Count* 257 K/uL (140-440); Red Blood Count 3.88 m/uL (4.00-5.20)
[2021-10-20 14:07] LABS: Slide Review Reflex No
[2021-10-20 14:16] LABS: Albumin* 3.5 g/dL (3.3-5.0); Chloride* 108 mmol/L (96-114); Sodium* 135 mmol/L (135-149)
[2021-10-20 14:17] LABS: Potassium* 3.2 mmol/L (3.6-5.1)
[2021-10-20 14:19] LABS: Creatinine* 0.6 mg/dL (0.5-1.5); Est. Creatinine Clearance* 120.18; Estimated Glomerular Filt Rate 118 ml/min
[2021-10-20 14:20] LABS: Blood Urea Nitrogen* 8 mg/dL (5-24); Calcium* 7.9 mg/dL (8.4-10.6); Carbon Dioxide* 20 mmol/L (20-32); Glucose* 78 mg/dL (60-115); Phosphorus* 2.3 mg/dL (2.5-4.5)
[2021-10-20 15:16] VITALS: BP 115/80; BP 117/84; BP 128/79; PULSE 68; PULSE 74; PULSE 86; RESP 16; TEMP 37.1; O2SAT 100
--- NOTE | 2021-10-20 18:32 | PC.NURSE ---
Pt. declined breakfast, had sips of clear liquids for lunch and 50% of regular diet for dinner. No nausea, vomiting or retching. Denies pain.
[2021-10-20 20:00] VITALS: BP 127/77; PULSE 65; RESP 18; TEMP 36.7; O2SAT 99
--- NOTE | 2021-10-20 22:50 | PC.NURSE ---
Shift note 19-23: Pt up ab silvestre, showered this evening, tolerating regular diet, denies any pain or nausea. Clarified with radiology, pt will be NPO after MN for SB follow thru @ 1100.
[2021-10-20 23:00] VITALS: PULSE 67; RESP 18
[2021-10-21] VITALS: BP 108/59; PULSE 60; RESP 18; TEMP 36.5; O2SAT 97
[2021-10-21] MEDS: 0.9 % SODIUM CHLORIDE 1000 ml 1,000 ML 125 ML IV ×2 (00:17→07:45)
[2021-10-21 03:44] VITALS: BP 103/70; PULSE 67; RESP 18; TEMP 36.6; O2SAT 97
--- NOTE | 2021-10-21 06:05 | PC.NURSE ---
-: pt indep in room. No c/o of nausea. No c/o pain. Pt stated the medication given at HS has helped relieve her symptoms. Pt slept throughout the night. Soft pressures, 103/79?& 108/59. HR 60s. Afebrile. NPO since midnight for GI follow up today.
[2021-10-21 06:24] LABS: Hematocrit 31.6 % (33.0-51.0); Hemoglobin* 11.1 gm/dL (12.0-16.0); Mean Corpuscular HGB Conc 35 gm/dL (32-36); Mean Corpuscular Hemoglobin 30 pg (26-34); Mean Corpuscular Volume 85 fL (80-100); Platelet Count* 244 K/uL (140-440); Red Blood Count 3.71 m/uL (4.00-5.20); White Blood Count* 7.44 K/uL (4.50-11.00)
[2021-10-21 06:35] LABS: Chloride* 109 mmol/L (96-114)
[2021-10-21 06:36] LABS: Potassium* 3.6 mmol/L (3.6-5.1); Sodium* 137 mmol/L (135-149)
[2021-10-21 06:38] LABS: Cholesterol* 104 mg/dL (90-199); Slide Review Reflex No
[2021-10-21 06:39] LABS: Blood Urea Nitrogen* 6 mg/dL (5-24); Calcium* 7.7 mg/dL (8.4-10.6); Carbon Dioxide* 23 mmol/L (20-32); Creatinine* 0.6 mg/dL (0.5-1.5); Est. Creatinine Clearance* 120.18; Estimated Glomerular Filt Rate 118 ml/min; Glucose* 76 mg/dL (60-115)
[2021-10-21 07:50] VITALS: BP 106/63; PULSE 62; RESP 16; TEMP 36.7; O2SAT 97
[2021-10-21] MEDS: OLANZapine 5 MG TAB.RAPDIS PO (08:50)
[2021-10-21] MEDS: LORazepam 0.5 MG TABLET PO (08:50)
[2021-10-21] MEDS: ONDANSETRON ODT 4 MG TAB PO (08:50)
[2021-10-21] MEDS: FAMOTIDINE 20 MG TABLET PO (08:50)
--- NOTE | 2021-10-21 09:54 | NUTR.NU ---
MIRZAN with MD consult for cyclic vomiting. RDN visited patient without designated caregiver present. Currently NPO in preparation for upper GI small-bowel follow-through today. She is followed by [facility] (was last seen August 2021) and, per their recommendations, she is to follow a gastroparesis diet. She reports she is still in phase 1 of this diet and has been having difficulty advancing to phases 2 & 3. She has been consuming 1 cheese stick for breakfast and lunch, and a small amount of cottage cheese for supper lately. She reports some weight loss recently (did not report an exact amount), however she said this was gradual and is 'healthy weight loss'. Current weight 136 lbs; Weight 04/21/2021 147.9 lbs (-11 lbs in 180 days, 7.4%, is not significant weight loss). Current BMI is normal at 22.1 kg/m2. RDN offered diet education to patient regarding a gastroparesis diet, however patient declined at this time stating she has a lot of information at home from [facility] regarding this diet and is aware of the diet. No nutrition interventions at this time. RDN will continue to monitor and follow-up prn.
--- NOTE | 2021-10-21 11:00 | CRLHL7_ITS ---
For Patients: As a result of the Century Cures Act, medical imaging exams and procedure reports are released immediately into your electronic medical record. You may view this report before your referring provider. If you have questions, please contact your health care provider. Technique: Double-contrast upper GI performed after the uneventful administration of effervescent crystals and thick barium followed by thin barium. Fluoroscopy time 1 minutes 39 seconds. Indication: persistent nausea, vomiting Comparison: Gastric emptying study 06/30/2021. CT abdomen and pelvis 05/30/2018. Findings: Swallowing mechanism: Normal. Esophageal motility: Slightly diminished. Gastroesophageal reflux: Mild. Hernia: None. Esophagus, stomach and duodenal bulb mucosa: Normal mucosa. No stricture or mass. Impression: Mild esophageal dysmotility and mild gastroesophageal reflux. Normal emptying of the stomach into the duodenum. No evidence of obstruction or inflammation. Dictated by Darin Bobby MD @ 10/21/2021 12:02:37 PM (Electronically Signed)
--- NOTE | 2021-10-21 15:57 | PM.DS1 ---
DS: Providers Provider Time Seen by Provider: 12:00 Date Seen: 10/21/21 Date of admission: 10/17/21 22:43 Primary care physician: Nohemy Dunn MD Admitting Clinician: Abiola Cardenas MD Consults: 10/17/21 23:19 Consult to Nutrition [CONS] Routine Comment: Reason for consult:: Nutritional Consult 10/18/21 15:23 Consult to Nutrition [CONS] Routine Comment: Reason for consult:: Miscellaneous Comment: cyclic vomiting Attending Physician on discharge: David Ramirez MD Date of Discharge: 10/21/21 DS: Diagnosis Discharge Diagnosis (1) Cyclical vomiting, intractable: Status: Acute (2) Gastroparesis: Status: Acute Problem details: Delayed gastric emptying on nuclear medicine test 2021 [facility] Consultation with brush clearer surveying 09/04/2021. Recommended Phenergan 12.5 mg before meals, gastroparesis diet, reducing marijuana use. (3) Marijuana abuse: Status: Acute (4) Anxiety: Status: Acute (5) Fever: Status: Acute (6) Leukocytosis: Status: Acute (7) Dehydration: Status: Acute (8) Lactic acidosis: Status: Acute (9) Protein-calorie malnutrition, mild: Status: Acute (10) Hypokalemia due to inadequate potassium intake: Status: Acute (11) Hypokalemia due to excessive gastrointestinal loss of potassium: Status: Acute (12) Hypophosphatemia: Status: Acute (13) Hypoalbuminemia: Status: Acute (14) Anemia, normocytic normochromic: Status: Acute DS: Summary Hospital Course Hospital Course: She has a known history of cyclic vomiting syndrome, notes that this is a typical presentation for a flare. She follows with [facility], has been found to have some mild gastroparesis, and is to be following a specific diet. Ate at [employer] last night and had pizza with a vodka cranberry drink (not typical for her), had symptoms immediately thereafter. Her primary symptom is vomiting, although she has had some intermittent diarrhea.? She has had no blood per rectum or hematemesis. She has no other signs or symptoms of illness, no recent travel, and no one at home is ill. She had a mild headache this morning that has resolved with IV fluids, she denies any acute skin concerns, and has no dysuria. Initial focus was on supportive efforts. Patient treated with IV fluids, antiemetics. We monitored her laboratory studies. With her symptoms being persistent, we attempted various medications and regimens, and eventually were able to establish a medication regimen that seemed to control her symptoms to her satisfaction. We discharged her on this regimen consistent of famotidine 20 mg p.o. b.i.d., ondansetron 4 mg p.o. b.i.d., olanzapine 5 mg p.o. b.i.d., and lorazepam 0.5 mg p.o. b.i.d.. Because of the persistent nature of her symptoms eventually we elected to undertake some radiological studies. Flattened upright exam of the abdomen was benign. Upper GI with small-bowel follow-through with air likewise for the most part was unremarkable although there is some mild slowing of transit through the esophagus. Certainly no other abnormalities noted. I emphasized to the patient throughout her hospital stay that this is a known condition that she suffers from. I admonished her to consider doing all she can to not trigger this response 1st and foremost, and secondly to do all she can adhere to the management efforts prescribed to her by her brush clearer surveying who specializes in gastroparesis. Along these lines, I specifically recommended that she avoid any and all exposure to cannabis. Additionally I recommended that she visit with her primary care physician in regard to concerns about anxiety not being adequately treated at this time. She expressed willingness to try these recommendations. Status at Discharge Functional status at discharge: independent ambulation Overall status at discharge: patient is progressing back to baseline Time Spent with Patient Time attestation: Total time spent providing and/or coordinating discharge services: Time spent: Greater than 30 minutes Exam Narrative: Exam Narrative: I awaken her in the morning by knocking on her door, entering her room, and calling out her name.? She awakens easily. No acute distress.? Articulate.? Cooperative.? Appears tired. Alert, oriented to self, place, time, situation.? Mood and affect are congruent.? Lungs clear to auscultation.? No CVA tenderness. Heart tones with regular rhythm, normal S1-S2.? No murmur, gallop, or rub. Abdomen with active bowel sounds, soft, nontender.? No distention.? No rebound or guarding. Extremities without edema.? Palpable pulses upper and lower extremities. Skin is warm, dry, intact. Independent transfer, station, and gait.? No tremor, asterixis, or ataxia. Const: Vital Signs, click to edit/add: Vital Signs - 24 hr 10/20/21 20:00 10/20/21 23:00 10/21/21 00:00 Temperature 98.0 F 97.7 F Pulse Rate [Pulse Oximeter] 65 67 60 Respiratory Rate 18 18 18 Blood Pressure [Le ft Arm] 127/77 108/59 L Pulse Oximetry 99 97 Oxygen Delivery Me thod Room Air Room Air 10/21/21 03:44 10/21/21 07:50 Temperature 97.9 F 98.1 F Pulse Rate [Pulse Oximeter] 67 62 Respiratory Rate 18 16 Blood Pressure [Le ft Arm] 103/70 106/63 Pulse Oximetry 97 97 Oxygen Delivery Me thod Room Air Room Air Documenting provider has reviewed patient's vital signs: yes DS: Data Data Completed and Pending Labs on day of discharge: Labs from last 24 hours 10/21/21 10/21/21 06:17 06:17 WBC 7.44 RBC 3.71 L Hgb 11.1 L Hct 31.6 L MCV 85 MCH 30 MCHC 35 Plt Count 244 Sodium 137 Potassium 3.6 Chloride 109 Carbon Dioxide 23 BUN 6 Creatinine 0.6 Estimated Creat Clear 120.18 Estimated GFR 118 Glucose 76 Calcium 7.7 L Magnesium Pending Cholesterol 104 Imaging Abdominal x-ray: Attestation: I have reviewed the pertinent imaging results. My impression: Normal. Radiologist's impression: No abnormalities. Upper GI with small-bowel follow-through: Radiologist's impression: Mild esophageal dysmotility and mild gastroesophageal reflux. Normal emptying of the stomach into the duodenum. No evidence of obstruction or inflammation. Discharge Plan Discharge Disposition: Home, Self-Care Date of Admission: 10/17/21 22:43 Attending Provider on Discharge: David Ramirez Primary Care Provider: Nohemy Dunn Condition: Improved Anticipated Discharge Date/Time: 10/21/21 13:30 Discharge Medications: New famotidine [Acid Urogynecology Physician (famotidine)] 20 mg Tablet 20 mg PO BID 30 Days Qty: 60 1RF lorazepam 0.5 mg Tablet 0.5 mg PO BID 14 Days Qty: 28 0RF olanzapine 5 mg tablet 5 mg PO BID 14 Days Qty: 28 0RF promethazine 25 mg Tablet 12.5 mg PO BID PRN (Reason: Nausea And Vomiting) 7 Days Qty: 14 0RF ondansetron 4 mg Tablet,Disintegrating 4 mg PO BID 14 Days Qty: 28 1RF Continued cyclobenzaprine 10 mg tablet 10 mg PO Q8H PRN Discharge Orders: Discharge Order (Routine); Ordered 10/21/21 Ordered By: David Ramirez Patient Education: Famotidine (By mouth), Lorazepam (By mouth), Promethazine (By mouth), Ondansetron (By mouth), Olanzapine (By mouth), Acute Nausea and Vomiting (DC), Cannabis Abuse (GEN), Anxiety (GEN) Activity Restrictions/Additional Instructions: 1. Follow-up with gastroparesis specialist regarding on-going concerns of nausea and vomiting; 2. Follow-up with primary care physician regarding anxiety concerns, in next 1-2 weeks; 3. Continue to adhere to gastroparesis dietary efforts; 4. Recommend not smoking marijuana to eliminate confounding factors that can trigger nausea and vomiting, including cannabinoid hyperemesis syndrome Activity Level: No Restrictions and Activity as Tolerated Discharge Diet: Other Diet Detail: Adhere to gastroparesis diet plan, resuming at phase 1 and advancing as tolerated. Follow Up Appointments: Nohemy Dunn MD [Primary Care Provider] - 11/02/21 9:35 am Forms: [employer] Info Instructions
[2021-10-22 14:59] LABS: Magnesium* 2.1 mg/dL (1.5-2.6)
== END 2021-10-21 14:26 | disposition home or self-care (01) ==
LOC: ED 22:35 → MEDSURG 22:44
PROVIDERS: Internal Medicine; Admitting Provider Family Medicine; Emergency Provider Family Medicine; PCP Family Medicine; Visit Provider Family Medicine
DX: R11.15 Cyclical vomiting syndrome unrelated to migraine (principal); K31.84 Gastroparesis; F12.10 Cannabis abuse, uncomplicated; F41.9 Anxiety disorder, unspecified; E86.0 Dehydration; R50.9 Fever, unspecified; D72.829 Elevated white blood cell count, unspecified; E87.2 Acidosis; E44.1 Mild protein-calorie malnutrition; E87.6 Hypokalemia; E83.39 Other disorders of phosphorus metabolism; E88.09 Other disorders of plasma-protein metabolism, not elsewhere classified; D64.9 Anemia, unspecified
CPT/HCPCS: 36415; 74019; 74246; 80048; 80053; 80069; 81003; 81015; 82465; 83605; 83690; 83735; 84703; 85025; 85027; 86140; 87635; 96361; 96374; 96375; 96376; 99284; A9270; G0378; J1790; J2060; J2270; J2405; J2550; J7030; J7120

== ENCOUNTER 2021-11-03 17:57 | Emergency (ER) | payer BC, SELFPAY ==
[2021-11-03] VITALS (7 sets, daily range): BP systolic 82–93; BP diastolic 51–67; PULSE 65–100; RESP 18; TEMP 36.4; O2SAT 92–100; BMI 20.3
[2021-11-03 19:40] LABS: Lactate* 1.8 mmol/L (0.5-1.9)
[2021-11-03 19:42] LABS: Basophils Percent Auto 0.4 % (0.0-3.0); Eosinophils Percent Auto 2.3 % (0.0-7.0); Hematocrit 43.5 % (33.0-51.0); Hemoglobin* 15.2 gm/dL (12.0-16.0); Immature Granulocytes Abs Auto 0.07 K/uL (0.00-0.30); Lymphocytes Percent Auto 22.5 % (20-44); Mean Corpuscular HGB Conc 35 gm/dL (32-36); Mean Corpuscular Hemoglobin 30 pg (26-34); Mean Corpuscular Volume 86 fL (80-100); Neutrophils Percent Auto 67.2 % (42.0-72.0); Platelet Count* 359 K/uL (140-440); RDW Coefficient of Variation % 12.1 % (11.5-15.5); Red Blood Count 5.06 m/uL (4.00-5.20); White Blood Count* 12.49 K/uL (4.50-11.00)
[2021-11-03 19:45] LABS: Slide Review Reflex No
[2021-11-03 19:48] LABS: Glucose, Point-of-Care* 110 mg/dl (60-115)
[2021-11-03] MEDS: 0.9 % SODIUM CHLORIDE 1000 ml 1,000 ML IV (19:50)
[2021-11-03 19:57] LABS: Chloride* 99 mmol/L (96-114)
[2021-11-03 19:58] LABS: Potassium* 3.2 mmol/L (3.6-5.1); Sodium* 140 mmol/L (135-149)
[2021-11-03 20:00] LABS: Aspartate Amino Transferase* 55 U/L (12-35); Bilirubin Total* 0.3 mg/dL (0.1-1.5); Carbon Dioxide* 28 mmol/L (20-32); Creatinine* 0.7 mg/dL (0.5-1.5); Est. Creatinine Clearance* 99.28; Estimated Glomerular Filt Rate 114 ml/min
[2021-11-03 20:01] LABS: Alanine Aminotransferase* 136 U/L (4-35); Alkaline Phosphatase* 64 U/L (40-150); Blood Urea Nitrogen* 9 mg/dL (5-24); Calcium* 9.5 mg/dL (8.4-10.6); Glucose* 99 mg/dL (60-115); Total Protein* 8.4 g/dL (6.0-8.3)
--- NOTE | 2021-11-03 20:20 | ED.SYNCOPE ---
HPI - Syncope General Chief Complaint: Syncope/Fainted Stated Complaint: Syncope Time Seen by Provider: 11/03/21 18:29 History of Present Illness HPI narrative: 36yo female patient presents to the ED via POV with complaints of syncopal episode less than 2hrs prior to arrival in the ED. The patient has significant PMH of surgery on 10/31 for gallbladder disease. The patient states that she has been advancing diet, but she has not been able to tolerate much intake. The patient reports that she had her first bowel movement post surgery this afternoon. The patient reports that at onset of symptoms she was walking into a restaurant for dinner. The patient states she had prodromal symptoms of lightheadedness, shortness of breath, and 'white out' of vision. The patient denies vomiting, but she reports nausea. She has no associated chest pain or shortness of breath. Her was witness and able to catch her when she began to give-way to fall. She did not fall or have complete loss of consciousness, as she was able to walk assisted back to the car. She did not strike her head. The patient reports in the ED she now has anxiety, worsened. Related Data Home Medications Medication Instructions Recorded Confirmed cyclobenzaprine 10 mg tablet 10 mg PO Q8H PRN 10/17/21 10/18/21 Previous Rx's Medication Instructions Recorded famotidine 20 mg tablet (Acid 20 mg PO BID 30 days #60 tabs 10/21/21 [place] [facility] (famotidine)) lorazepam 0.5 mg tablet 0.5 mg PO BID 14 days #28 tabs 10/21/21 olanzapine 5 mg tablet 5 mg PO BID 14 days #28 tabs 10/21/21 ondansetron 4 mg disintegrating 4 mg PO BID 14 days #28 tabs 10/21/21 tablet promethazine 25 mg tablet 12.5 mg PO BID PRN Nausea And 10/21/21 Vomiting 7 days #14 tabs Allergies Allergy/AdvReac Type Severity Reaction Status Date / Time cyclobenzaprine Allergy Verified 10/17/21 16:49 [From Flexeril] Sulfa (Sulfonamide Allergy Verified 10/17/21 16:49 Antibiotics) Review of Systems Const: Reports: fatigue, malaise and change in sleep pattern; Denies: fever or chills ENMT: Denies: throat pain, change in hearing, nasal discharge or nasal congestion Cardio: Denies: chest pain, palpitations or shortness of breath with exertion Resp: Denies: shortness of breath or cough GI: Reports: abdominal pain, nausea and other (healing incisions); Denies: vomiting, diarrhea (loose stool noted today) or constipation : Denies: painful urination, urinary frequency, urinary urgency or blood in urine Neuro: Denies: headache or numbness in extremities Psych: Denies: anxiety Endo: Reports: fatigue PFSH PFSH Medical History Cyclic vomiting syndrome Gastroparesis Lymphocytic colitis Marijuana abuse Surgical History History of appendectomy Social History Narrative: History of chronic marijuana use. Highest level of school completed/degree received: GED or equivalent Smoking Status: Former smoker Do you use any of these nicotine containing products: None Second hand tobacco smoke exposure: No How often do you have a drink containing alcohol: monthly or less AUDIT-C Alcohol total score: 1 Non-prescribed substance use: marijuana (any form) Caffeine: Yes (pop 5-6 per day) service: No Exam Const: Vital Signs, click to edit/add: Vital Signs - 24 hr 11/03/21 18:26 Temperature 97.6 F Pulse Rate [Right Pulse Oximeter] 100 Respiratory Rate 18 Blood Pressure [Ri ght Upper Arm] 93/67 Pulse Oximetry 97 Oxygen Delivery Me thod Room Air Documenting provider has reviewed patient's vital signs: yes Common normals: no apparent distress, average body habitus, oriented x3, no limitations, healthy appearing, alert and well nourished General appearance: cooperative, comfortable, well kempt and well developed; not in distress and not anxious Orientation/consciousness: Yes awake, Yes oriented to person, Yes oriented to place and Yes oriented to time HENMT: Common normals: normocephalic and head/scalp atraumatic Head and scalp: normocephalic and atraumatic Face and sinus: normal facial exam (limited by masking) Eye: Common normals: PERRL and EOMs intact bilaterally General eye: normal appearance of both eyes Alignment: alignment normal Pupil: PERRL and accommodation reflex normal Neck & C-Spine: Common normals: full ROM, no lymphadenopathy and supple General: normal visual inspection Resp: Common normals: normal respiratory effort, no retractions, no use of accessory muscles and clear to auscultation bilaterally Effort & inspection: able to speak in complete sentences Auscultation: clear to auscultation bilaterally Cardio: Common normals: regular rate, regular rhythm, S1 normal heart sound, S2 normal heart sound, no gallops, no clicks and no murmurs Rate: regular rate Rhythm: regular rhythm Heart sounds: S1 normal and S2 normal GI: Common normals: Normal to inspection, nondistended, normoactive bowel sounds present, soft to palpation and non-tender Inspection: incision (CDI) Inspection of incision: healing well Palpation: soft and tender Extremity: Common normals: normal to inspection, full ROM and no clubbing, cyanosis or edema Neuro: Common normals: oriented x3 Sensorium/orientation: awake, alert, oriented to person, oriented to place and oriented to time Coordination/balance: [id number] test normal Gait (neuro): normal gait Sensory exam: double simultaneous stimulation for sensation normal Motor exam: no movement abnormalities noted Coordination: [id number] test normal Psych: Common normals: mental status grossly normal, thought process normal and speech normal Appearance: well kempt Attitude: calm Speech: normal speech Thought process: normal thought process Thought content: normal thought content Attention/concentration: attention grossly intact Memory/cognition: memory grossly intact Insight: insight good Judgement: judgment good Skin: Common normals: no rashes or lesions noted General skin exam: no rashes or lesions noted Course Course Hospital Course: Tamia presented to the emergency department for evaluation of a near syncopal episode while attempting to walk into a restaurant to have dinner. The patient denies loss of consciousness, striking her head, or tonic/clonic movement. The patient's episode was witnessed by her who reported the patient became pale, diaphoretic, and weak. She needed to be assisted to the car. They presented urgently for evaluation. Patient has had laboratory studies and medications as noted. Her EKG was remarkable for normal sinus rhythm. She reports significant improvement in symptoms. She has tolerated p.o. intake. She has been able to ambulate without assistance. Reevaluation(s) Reevaluation #1: Patient reports significant improvement in symptoms. Patient's vital signs have remained stable. The results were discussed, and the patient verbalized understanding. Reasons for follow-up or return were discussed. Vital Signs Vital signs: Initial Vital Signs Temperature 97.6 F 11/03/21 18:26 Temperature Source Temporal Artery Scan 11/03/21 18:26 Pulse Rate 100 11/03/21 18:26 Respiratory Rate 18 11/03/21 18:26 Blood Pressure 93/67 11/03/21 18:26 Blood Pressure Mean 75 11/03/21 18:26 Blood Pressure Position Sitting 11/03/21 18:26 Pulse Oximetry 97 11/03/21 18:26 Oxygen Delivery Method 11/03/21 18:26 Vital Signs Temperature 97.6 F 11/03/21 18:26 Pulse Rate 100 11/03/21 18:26 Respiratory Rate 18 11/03/21 18:26 Blood Pressure 93/67 11/03/21 18:26 Pulse Oximetry 97 11/03/21 18:26 Oxygen Delivery Method 11/03/21 18:26 Temperature 97.6 F 11/03/21 18:26 Pulse Rate 100 11/03/21 18:26 Respiratory Rate 18 11/03/21 18:26 Blood Pressure 93/67 11/03/21 18:26 Pulse Oximetry 97 11/03/21 18:26 Oxygen Delivery Method 11/03/21 18:26 MDM - Syncope MDM Narrative Medical decision making narrative: Life-threatening differential diagnoses considered include but are not limited to: CVA, SC, aortic dissection, dysrhythmia, hypovolemia, and pulmonary embolism. Other differential diagnoses considered include but are not limited to infectious process, vasovagal, orthostatic hypotension, medication side effects, anemia, electrolyte abnormalities, PHOTOVOLTAIC SOLAR CELL DESIGNER concerns, psychosocial, and substance use. Medical Records Attestation: I reviewed the patient's medical records. Lab Data Attestation: I reviewed the patient's lab results. Labs: Lab Results 11/03/21 11/03/21 11/03/21 Range/Units 18:41 19:30 19:30 WBC 12.49 H (4.50-11.00) K/uL RBC 5.06 (4.00-5.20) m/uL Hgb 15.2 (12.0-16.0) gm/dL Hct 43.5 (33.0-51.0) % MCV 86 (80-100) fL MCH 30 (26-34) pg MCHC 35 (32-36) gm/dL RDW Coeff of Maria Guadalupe 12.1 (11.5-15.5) % Plt Count 359 (140-440) K/uL Neut % (Auto) 67.2 (42.0-72.0) % Lymph % (Auto) 22.5 (20-44) % [place] % (Auto) 7.0 (0.0-11.0) % Eos % (Auto) 2.3 (0.0-7.0) % Baso % (Auto) 0.4 (0.0-3.0) % Neut # (Auto) 8.40 H (1.7-7.0) K/uL Lymph # (Auto) 2.80 (0.90-2.90) K/uL [place] # (Auto) 0.90 (0.00-0.90) K/UL Eos # (Auto) 0.30 (0.00-0.50) K/uL Baso # (Auto) 0.00 (0.00-0.30) K/uL Abs Immat Gran (auto) 0.07 (0.00-0.30) K/uL Sodium 140 (135-149) mmol/L Potassium 3.2 L (3.6-5.1) mmol/L Chloride 99 (96-114) mmol/L Carbon Dioxide 28 (20-32) mmol/L BUN 9 (5-24) mg/dL Creatinine 0.7 (0.5-1.5) mg/dL Estimated Creat Clear 99.28 Estimated GFR 114 ml/min Glucose 99 (60-115) mg/dL Lactate (0.5-1.9) mmol/L Calcium 9.5 (8.4-10.6) mg/dL Total Bilirubin 0.3 (0.1-1.5) mg/dL AST 55 H (12-35) U/L ALT 136 H (4-35) U/L Alkaline Phosphatase 64 (40-150) U/L Total Protein 8.4 H (6.0-8.3) g/dL Albumin 5.0 (3.3-5.0) g/dL POC Glucose 110 (60-115) mg/dl 11/03/21 Range/Units 19:30 WBC (4.50-11.00) K/uL RBC (4.00-5.20) m/uL Hgb (12.0-16.0) gm/dL Hct (33.0-51.0) % MCV (80-100) fL MCH (26-34) pg MCHC (32-36) gm/dL RDW Coeff of Maria Guadalupe (11.5-15.5) % Plt Count (140-440) K/uL Neut % (Auto) (42.0-72.0) % Lymph % (Auto) (20-44) % [place] % (Auto) (0.0-11.0) % Eos % (Auto) (0.0-7.0) % Baso % (Auto) (0.0-3.0) % Neut # (Auto) (1.7-7.0) K/uL Lymph # (Auto) (0.90-2.90) K/uL [place] # (Auto) (0.00-0.90) K/UL Eos # (Auto) (0.00-0.50) K/uL Baso # (Auto) (0.00-0.30) K/uL Abs Immat Gran (auto) (0.00-0.30) K/uL Sodium (135-149) mmol/L Potassium (3.6-5.1) mmol/L Chloride (96-114) mmol/L Carbon Dioxide (20-32) mmol/L BUN (5-24) mg/dL Creatinine (0.5-1.5) mg/dL Estimated Creat Clear Estimated GFR ml/min Glucose (60-115) mg/dL Lactate 1.8 (0.5-1.9) mmol/L Calcium (8.4-10.6) mg/dL Total Bilirubin (0.1-1.5) mg/dL AST (12-35) U/L ALT (4-35) U/L Alkaline Phosphatase (40-150) U/L Total Protein (6.0-8.3) g/dL Albumin (3.3-5.0) g/dL POC Glucose (60-115) mg/dl Discharge Plan Discharge Clinical Impression: Syncope, vasovagal, Hypokalemia due to inadequate potassium intake Patient Disposition: Home, Self-Care Condition: Improved Instructions: Syncope (ED) Additional Instructions: Thank you for choosing [facility] for care today. For dizziness, he should change positions slowly. Do not go directly from lying to standing. Do not go directly from sitting to walking. Increase your water intake to approximately 75-100oz daily, but increasing 8-10 oz daily until at goal. Consider compression leggings to assist with improved blood return with position changes. Your blood pressure has been reviewed Finally, if your symptoms worsen or new symptoms develop, you are encouraged to return to the clinic or emergency department for re-evaluation. Activity Level: Activity as Tolerated Discharge Diet: Regular and Heart Healthy (2 gm sodium, low fat) Prescriptions: No Action cyclobenzaprine 10 mg tablet 10 mg PO Q8H PRN famotidine [Acid [place] [facility] (famotidine)] 20 mg Tablet 20 mg PO BID 30 Days Qty: 60 1RF lorazepam 0.5 mg Tablet 0.5 mg PO BID 14 Days Qty: 28 0RF olanzapine 5 mg tablet 5 mg PO BID 14 Days Qty: 28 0RF promethazine 25 mg Tablet 12.5 mg PO BID PRN (Reason: Nausea And Vomiting) 7 Days Qty: 14 0RF ondansetron 4 mg Tablet,Disintegrating 4 mg PO BID 14 Days Qty: 28 1RF Follow Up/Referrals: Nohemy Dunn MD [Primary Care Provider] - Stand Alone Forms: Reasult Info Instructions
[2021-11-03] MEDS: OLANZapine 5 MG TAB.RAPDIS PO (20:21)
[2021-11-03] MEDS: KETOROLAC 30 MG/ML inj IVP (20:21)
== END 2021-11-03 20:45 | disposition home or self-care (01) ==
PROVIDERS: Emergency Provider Family Medicine; PCP Family Medicine
DX: R55 Syncope and collapse (principal); E87.6 Hypokalemia
CPT/HCPCS: 36415; 80053; 82947; 83605; 85025; 96374; 99283; 99284; A9270; J1885; J7030

== ENCOUNTER 2024-08-12 12:19 | Emergency (ER) | payer BC, SELFPAY ==
--- OUTSIDE RECORDS SUMMARY | 2024-08-12 12:21 | XMS_ITS | Encounter Summary ---
Author Organization [facility] Address [address] [place] [id number] Care Team Providers Care Real Estate Lawyer Name Role Phone Frw, None Primary Care Provider [facility] Primary Care Provider Reason for Visit * Reason Comments Abstract Encounter Details Date Type Department Care Team (Late st Contact Info) Description 10/12/2000 Abstract [facility] [place] Medical Records [address] [place] [id number] Post Partum Nurse, Luba Social History Tobacco Use Types Packs/Day Years Used Date Smoking Tobacco: Never Assessed Comments No Sex and Gender Information Value Date Recorded Sex Assigned at Not on file Legal Sex Female 3:22 AM [employer] PLATE G[employer] Gender Identity Not on file Sexual Orientation Not on file documented as of this encounter Plan of Treatment Not on file documented as of this encounter Visit Diagnoses Not on filedocumented in this encounter Care Teams Real Estate Lawyer Relationship Specialty Start Date End Date Frw, None PCP - General 04/13/00 11/18/[address] [address] PCP - General 10/29/21 documented as of this encounter
--- OUTSIDE RECORDS SUMMARY | 2024-08-12 12:21 | XMS_ITS | Clinical Summary ---
Author Organization [facility] Address [address] [place] [id number] Care Team Providers Care Package Liner Name Role Phone Nohemy Dunn MD Primary Care Prov ider Allergies Active Allergy Reactions Criticality Noted Date Comments Latex 07/15/2007 Sulfa (Sulfonamide Antibiotics) Vomiting 07/15/2007 abstract - vomitting Medications multivit with min-folic acid (ADULT MULTIVITAMIN GUMMIES) 200 mcg chew Take 2 tablets by mouth once daily. 0 05/08/19 20 Active triamcinolone 0.1% TOPICAL (KENALOG) 0.1 % lotionIndications: Rash Apply topically to affected area(s) 3 times daily as needed. 1 Bottle 05/08/19 20 Active cyclobenzaprine (FLEXERIL) 10 mg tablet Take 10 mg by mouth. 10/18/19 22 Active famotidine (PEPCID) 20 mg tablet Take 20 mg by mouth two times daily. 10/22/19 22 Active OLANzapine (ZYPREXA) 5 mg tablet Take 5 mg by mouth two times daily. 10/22/19 22 Active ondansetron (ZOFRAN ODT) [address] 4 mg on the tongue two times daily. 10/22/19 22 Active acetaminophen (TYLENOL EXTRA STRGTH) 500 mg tablet Take 1,000 mg by mouth every 6 hours if needed for Pain. 11/01/19 22 Active clindamycin 1% (CLEOCIN-T) 1 % lotion Apply topically to affected area(s) two times daily. 03/22/19 24 Active ibuprofen (ADVIL; MOTRIN) 200 mg tablet Take 600 mg by mouth every 6 hours if needed for Pain. 11/01/19 22 Active metoclopramide (REGLAN) 5 mg tablet Take 5 mg by mouth every 6 hours if needed for Nausea/Vomiting. 04/21/19 22 Active promethazine (PHENERGAN) 12.5 mg tablet Take 25 mg by mouth every 6 hours if needed for Nausea/Vomiting. 09/03/19 22 Active sulfacetamide-sulf ur , 10 - 5%, (SULFACET-R) 10-5 % (w/w) clsr Apply topically to affected area(s) once daily. 03/22/19 24 Active potassium chloride (KLOR-CON M20) 20 mEq extended-release tablet (part/cryst) Take 20 mEq by mouth once daily. 07/22/19 20 Active cyclobenzaprine (FLEXERIL) 10 mg tabletIndications: Upper back strain, subsequent encounter,Neck strain, subsequent encounter Take 1 Tablet (10 mg) by mouth three times daily. Due for visit/physical exam 30 Tablet 3 08/18/19 24 Active SUMAtriptan (IMITREX) 6 mg/0.5 mL SUBCUTANEOUS penIndications:Samuel latisha syndrome Inject 0.5 mL (6 mg) subcutaneous 2 times daily if needed for Migraine. Give at minimum 2hrs apart. Max Dose: 12mg per 24hrs. 6 mL 4 08/18/19 24 Active LORazepam (ATIVAN) 0.5 mg tabIndications:Erica st pressure Take 1 Tablet (0.5 mg) by mouth one time for 1 dose. If 5 Tablet 10/19/19 24 Active hydrOXYzine HCL (ATARAX) 25 mg tabletIndications: Rash,Anxiety TAKE 1 TABLET(25 MG) BY MOUTH EVERY 6 HOURS NEEDED FOR ANXIETY 25 Tablet 01/07/20 24 Active Active Problems Problem Noted Date Diagnosed Date IBS (irritable bowel syndrome) 03/01/2022 Melanoma of skin 09/07/2021 Overview (09/07/2021): Back wide excision reported by patient has clear margins. Followed at [facility] dermatology Moodiness 02/28/2017 Diarrhea 12/12/2012 Overview (12/12/2012): EGD 11/2012 normal Colon polyp 07/30/2010 Overview (07/30/2010): Colonoscopy 07/2010 polyp repeat in 5 years Resolved Problems Problem Noted Date Diagnosed Date Resolved Date Marijuana dependence 11/01/2022 024 Marginal placenta 09/28/2011 01/22/2022 Supervision of other normal 07/06/2011 01/24/2017 Assessment & Plan (01/20/2012 2:34 PM CDT): Group B strep NEGATIVE Breech presentation 12/09/2008 12/20/19 09 Premature uterine contractions 12/05/2008 01/22/2022 Supervision of other normal 08/08/2008 01/24/2017 Encounters Date Type Department Care Team Description 06/18/[address] [address] Nohemy Dunn MD Prior Authorization (SUMAtriptan (IMITREX) 6 mg/0.5 mL SUBCUTANEOUS pen (QTY LIMIT DENIED)); Questions (SUMAtriptan (IMITREX) 6 mg/0.5 mL SUBCUTANEOUS) 06/12/2024 Telephone [facility] [address] [place] [address] Nohemy Dunn MD Form from Last 3 Months Immunizations Immunization Administration Dates Next Due COVID-19 VACCINE SPIKEVAX (M ODERNA 50MCG/0.5ML) 12YO+ PFS 04/06/2023 COVID-19 vaccine (Pfizer-Bio NTech 30mcg/0.3mL) 12YO+ BIVALENT PF, MDV 03/01/2022 COVID-19 vaccine (Pfizer-Bio NTech 30mcg/0.3mL) PF, MDV 02/10/2021 DTP 09/27/1996, 6,02/18/1985,1984,1984 Hepatitis B, Unspecified 10/19/1996,09/18/1996 Influenza A (H1N1), Inactivated 01/24/2009 Influenza, IIV3 (Age >=3 years) 01/17/20 14,11/27/2012,12/16/2011,2010,12/15/2009,12/19/2008 Influenza, IIV4 04/06/2023,,02/10/2021,2019,05/08/2019,01/20/2018,01/24/2017 MMR 09/27/1996,01/19/1986 Oral Polio Vaccine 10/20/1989, 6,02/18/1985,1984,1984 Td, Preservative Free (age > = 7 Years) 10/20/1989 Tdap 03/01/2022,12/30/2011 Family History Medical History Relation Name Comments Diabetes Father Diabetes Maternal Aunt Muscular dystrophy Maternal Grandmother Other Mother ARDS Diabetes Paternal Grandfather Relation Name Status Comments Father Maternal Aunt Maternal Grandmother Mother Paternal Grandfather Social History Tobacco Use Types Packs/Day Years Used Date Smoking Tobacco: Former Smokeless Tobacco: Never Tobacco Cessation:Counseling Given: Yes Comments:quit three years ago Alcohol Use Standard Drinks/Week Comments No 0 (1 standard drink = 0.6 oz pur e alcohol) PHQ-2 Answer Date Recorded PHQ-2 TOTAL SCORE 0 04/06/2023 Social Connections Answer Date Recorded Do you often feel lonely or isolated from those around you? 0 08/18/2023 Financial Resource Strain Answer Date R ecorded Difficulty of Paying Living Expenses 3 08/18/2023 Difficulty of Paying Living Expenses Not on file 08/18/2023 Food Insecurity Answer Date Recorded Do you worry your food will run out before you are able to buy more? 1 08/18/2023 Transportation Needs Answer Date Record ed Does lack of transportation keep you from medica l appointments? 1 08/18/2023 Does lack of transportation keep you from work, meetings or getting things that you need? 1 08/18/2023 Housing Stability Answer Date Recorded What is your housing situation today? 1 08/18/2023 Utilities Answer Date Recorded Do you have trouble paying f or utilities (for example, heat, electricity, water, phone)? 1 08/18/2023 Comments No Sex and Gender Information Value Date Recorded Sex Assigned at Not on file Legal Sex Female 7:28 AM JEWEL BEARING MAKER Gender Identity Not on file Sexual Orientation Not on file Occupation Industry Job Start Date Job End Date Not on file Not on file Not on file Not on file Obstetrics History Para Term AB IAB SAB Ectopic Multiple Livin g Live Births 3 3 2 1 3 Date Outcome GA Total Labor Labor/2nd/3rd Weight Sex Type Anes PTL Yudith A1 A5 Name Clin 01/02/20 06 35w 0d 8h 00m/ 2.18 kg (4 lb 13 oz) F Vag stena Comments: labor at 33 weeks delivery 34 wk and 6 days when delivered small for datesf 02/01/20 09 Term 39w 0d M Vag Brayden Comments:36 min total labor 01/27/20 12 Term M Vag Mumtaz Last Filed Vital Signs Vital Sign Reading Time Taken Comments Blood Pressure 99/68 10/19/2023 2:24 PM CDT Pulse 76 10/19/2023 2:24 PM CDT Temperature 36.9 C (98.5 F) 04/06/2023 10:59 AM JEWEL BEARING MAKER Respiratory Rate 14 05/08/2019 11:12 AM JEWEL BEARING MAKER Oxygen Saturation 100% 10/19/2023 2:24 PM CDT Inhaled Oxygen Concentration - - Weight 58.1 kg (128 lb) 10/19/2023 2:24 PM CDT Height 166.4 cm (5' 5.5) 08/18/2023 12:28 PM CD T Body Mass Index 20.98 08/18/2023 12:28 PM CDT Plan of Treatment Health Maintenance Due Date Last Done Comments Depression screening for age 12+ 1996 Hepatitis B series for 19+ (3 of 3 - 3-dose series) 01/08/1997 10/19/1996, 09/18/1996 COVID-19 vaccine series ( season) 2023 04/06/2023, 03/01/2022, 02/10/2021, Additional history exists Pap test for age 21-65 05/08/2024 , 05/08/2019, 01/24/2017, Additional history exists BMI (ht and wt on same day) for age 18+ 08/17/2024 08/18/2023, 03/01/2022, 02/10/2021, Additional history exists Influenza Vaccine (Season Ended) 2024 04/06/2023, 03/01/2022, 02/10/2021, Additional history exists Tetanus booster 03/01/2032 03/01/2022, 12/19, 10/20/1989 HIV for age 15-65 Completed 07/06/2011, 06/24/2008 Hepatitis C screening for age 18-79 Completed 12/07/2012 Tdap Completed 03/01/2022, 12/30/2011 Pneumococcal series for age 6-49 Aged Out No longer eligible based on patient's age to complete this topic Procedures Procedure Name Priority Date/Time Associated Diagnosis Comments AUTOPSY ASSISTANT THIN PREP PAP SCREEN IMAGED Routine 05/08/2019 12:00 PM JEWEL BEARING MAKER Pap smear for cervical cancer screening ANTI HCV Routine 12/07/2012 10:07 AM CDT Elevated transaminase level ANTI HIV 1/2 Routine 07/06/2011 10:44 AM CDT Supervision of other normal (HC) from Last 3 Months or Most Recently Relevant to Health Maintenance Results * AUTOPSY ASSISTANT THIN PREP PAP SCREEN IMAGED (05/08/2019 12:00 PM JEWEL BEARING MAKER) Case Report Gynecologic Cytology Report Case: [id number] Authorizing Provider: Nohemy Dunn Collected: 05/08/2019 Maggie Real MD Ordering Location: [facility] Received: 05/08/2019 1214 Clinic First Screen: Zenon Rodney Specimen: AUTOPSY ASSISTANT ThinPrep Vial Screening, Cervical 05/17/2019 11:53 AM JEWEL BEARING MAKER [employer] INTERPRETATION /RESULT NEGATIVE FOR INTRAEPITHELIAL LESION OR MALIGNANCY (NIL) (none) 05/17/2019 11:53 AM JEWEL BEARING MAK[employer] at 1153 JEWEL [employer]ARING MAK[employer] SPECIMEN ADEQUACY Satisfactory for evaluation Endocervical component present 05/17/2019 11:53 AM JEWEL BEARING MAK[employer] HPV REQUEST HPV and PAP 05/17/2019 11:53 AM JEWEL BEARING MAK[employer] Date of LMP 04/27/19 05/17/2019 11:53 AM JEWEL BEARING MAK[employer] Last Pap Date 01/24/17 05/17/2019 11:53 AM [facility] Last Pap Result NIL 05/17/2019 11:53 AM JEWEL BEARING MAKER [facility] Abnormal Pap or Marshall Bx in last 5 years No 05/17/2019 11:53 AM [facility] Menstrual Status Regular Periods 05/17/2019 11:53 AM JEWEL BEARING MAKER [facility] Marshall Bx Done Today No 05/17/2019 11:53 AM JEWEL BEARING MAKER [facility] Additional Information None given 05/17/2019 11:53 AM [facility] Comment: Cytology is screened at [facility] - [address], [place] [address] and [facility] - [address], [place] [address] and [facility] - [address] [place] [address] Interpreted at [facility] - [address], [place] [address] Automated Review Failed 05/17/2019 11:53 AM [facility] Comment:Processing failed, m anual screening required. ThinPrep Imaging System, [employer] ANCILLARY TESTING AUTOPSY ASSISTANT HPV Ordered, Please see separate report 05/17/2019 11:53 AM [facility] Note The pap test is a screening technique, not a diagnostic procedure. It is used primarily to screen for squamous cancers and precursor lesions. Published studies have shown that it is subject to both false negative and false positive results. The pap test should not be used as the sole means to diagnose or exclude pre-malignant and malignant lesions. 05/17/2019 11:53 AM [facility] Other (Cervical) Non-Blood / Unknown 05/08/2019 12:00 PM JEWEL BEARING MAKER 05/08/2019 12:14 PM JEWEL BEARING MAKER us Nohemy Dunn MD PATHOLOGY/CYTOLOGY Final Result [facility] [address] [place] [address], [place] * ANTI HCV (12/07/2012 10:07 AM CDT) ANTI HCV Non-reacti ve [facility] Blood specimen (specimen) BLOOD SPECIMEN / Unknown 12/07/2012 10:07 AM CDT 12/07/2012 10:04 AM CDT us Mika Car MD SEND OUTS Final Res ult [facility] [place]NAL ZIP [address] [place] [id number] * ANTI HIV 1/2 (07/06/2011 10:44 AM CDT) ANTI HIV 1/2 Non-reacti ve [facility] Blood specimen (specimen) BLOOD SPECIMEN / Unknown 07/06/2011 10:44 AM CDT 07/06/2011 10:32 AM CDT us Nohemy Dunn MD SEND OUTS Fi nal Result Performing Organization Address City/[facility]/ZIP Co de Phone Number [facility] INTERNAL ZIP [address] [place] [address] from Last 3 Months or Most Recently Relevant to Health Maintenance [place] [address] [employer] [place] [employer] [address] [place] [address] Care Teams Package Liner Relationship Specialty Start Date End Date Nohemy Dunn MD PCP - General 12/12/09
--- OUTSIDE RECORDS SUMMARY | 2024-08-12 12:21 | XMS_ITS | Clinical Summary ---
Author Organization [facility] Address [address] [facility] [place] [address] Care Team Providers Care Lapper Name Role Phone [facility], [facility] Primary Care Provider Allergies Active Allergy Reactions Criticality Noted Date Comments Adhesive Tape abstract Latex 10/29/2021 Rash Sulfa Antibiotics abstract - vomitting Medications cyclobenzaprine (FLEXERIL) 10 MG tablet Take 10 mg by mouth 3 times daily as needed for muscle spasms Active LORazepam (ATIVAN) 0.5 MG tablet Take 0.5 mg by mouth 2 times daily Active ondansetron (ZOFRAN) 4 MG tablet Take 4 mg by mouth 2 times daily For 14 days Active Vit-Fe Fumarate-FA ( MULTIVITAMIN W/IRON) 27-0.8 MG tablet Take 1 tablet by mouth daily Active multivitamin w/minerals (MULTI-VITAMIN) tablet Take 1 tablet by mouth daily Active promethazine (PHENERGAN) 12.5 MG tablet Take 25 mg by mouth 2 times daily as needed for nausea Active SUMAtriptan (IMITREX) 6 MG/0.5ML injection Inject 6 mg Subcutaneous 2 times daily as needed for migraine Active oxyCODONE (ROXICODONE) 5 MG tabletIndication s:Gallstones,Int ractable abdominal pain Take 1-2 tablets (5-10 mg) by mouth every 4 hours as needed for moderate to severe pain 12 tablet 2 Active ibuprofen (ADVIL/MOTRIN) 200 MG tabletIndication s:Gallstones,Int ractable abdominal pain Take 3 tablets (600 mg) by mouth every 6 hours as needed for moderate pain 2 Active acetaminophen (TYLENOL) 500 MG tabletIndication s:Gallstones,Int ractable abdominal pain Take 2 tablets (1,000 mg) by mouth every 6 hours as needed for pain 2 Active HYDROcodone-acet aminophen (NORCO) 5-325 MG tabletIndication s:Gallstones Take 1-2 tablets by mouth every 6 hours as needed for moderate to severe pain. 12 tablet 2 Active Active Problems Problem Noted Date Diagnosed Date Gallstones 10/30/2021 Acute pancreatitis, unspecif ied complication status, unspecified pancreatitis type 10/30/2021 Immunizations Immunization Administration Dates Next Due HepB 10/19/1996,09/18/1996 Historical DTP/aP 09/27/1996,01/19/1986,02/18/19 85,1984,1984 MMR (MMRII) 09/27/1996,01/19/1986 OPV, trivalent, live 10/20/1989,01/19/1986,02/18,1984,1984 TD,PF 7+ (Tenivac) 10/20/1989 Social History Tobacco Use Types Packs/Day Years Used Date Smoking Tobacco: Former Smokeless Tobacco: Never Alcohol Use Standard Drinks/Week Comments Yes 0 (1 standard drink = 0.6 oz pur e alcohol) rarely - o a month Adolescent Education Answer Date Record ed Getting School Help Needed Not on file 01/02 Comments No Sex and Gender Information Value Date Recorded Sex Assigned at Not on file Legal Sex Female 3:22 AM RESOURCING ADVISOR Gender Identity Not on file Sexual Orientation Not on file Last Filed Vital Signs Vital Sign Reading Time Taken Comments Blood Pressure 115/80 10/31/2021 1:20 PM CDT Pulse 105 10/31/2021 12:45 PM CDT Temperature 36.3 C (97.4 F) 10/31/2021 1:20 PM CDT Respiratory Rate 18 10/31/2021 1:20 PM CDT Oxygen Saturation 100% 10/31/2021 12:45 PM CDT Inhaled Oxygen Concentration - - Weight 57.2 kg (126 lb) 10/30/2021 4:47 AM CDT Height 167.6 cm (5' 6) 10/30/2021 4:47 AM CDT Body Mass Index 20.34 10/30/2021 4:47 AM CDT Plan of Treatment Health Maintenance Due Date Last Done Comments ADVANCE CARE PLANNING 1984 ANNUAL REVIEW OF HM ORDERS 1984 HEPATITIS B IMMUNIZATION (3 of 3 - 3-dose series) 01/08/1997 10/19/1996, 09/18/1996 HIV SCREENING 09/01/1999 HEPATITIS C SCREENING 2002 PAP 2005 DTAP/TDAP/TD IMMUNIZATION (7 - Td or Tdap) 12/29/2021 12/30/2011, 09/27/1996, 10/20/1989, Additional history exists YEARLY PREVENTIVE VISIT 02/10/2022 02/10/2021 COVID-19 Vaccine ( season) 2023 02/10/2021, 08/05/2020, 07/15/2020 PHQ-2 (once per calendar year) 2024 DIABETES SCREENING 10/31/2024 10/31/2021, 10/29/2021 INFLUENZA VACCINE (Season Ended) 2024 02/10/2021, 11/27/2019, 05/08/2019, Additional history exists ZOSTER IMMUNIZATION (1 of 2) 2034 HPV IMMUNIZATION Aged Out No longer e ligible based on patient's age to complete this topic MENINGITIS IMMUNIZATION Aged Out No l onger eligible based on patient's age to complete this topic Pneumococcal Vaccine: Pediatrics (0 to 5 Years) and At-Risk Patients (6 to 49 Years) Aged Out No longer eligible based on patient's age to complete this topic Procedures Procedure Name Priority Date/Time Associated Diagnosis Comments COMPREHENSIVE METABOLIC PANEL Routine 10/31/2021 6:17 AM CDT from Last 3 Months or Most Recently Relevant to Health Maintenance Results * (ABNORMAL) Comprehensive metabolic panel (10/31/2021 6:17 AM CDT) Sodium 138 136 - 145 mmol/L 10/31/2021 7:06 AM CDT [facility] Potassium 3.7 3.4 - 5.3 mmol/L 10/31/2021 7:06 AM CDT [facility] Creatinine 0.64 0.51 - 0.95 mg/dL 10/31/2021 7:06 AM CDT [facility] Urea Nitrogen 6.5 6.0 - 20.0 mg/dL 10/31/2021 7:06 AM [facility]T LABOR[facility] Chloride 107 98 - 107 mmol/L 10/31/2021 7:06 AM CDT LABORATORY Carbon Dioxide (CO2) 21(L) 22 - 29 mmol/L 10/31/2021 7:06 AM CDT LABORATORY Anion Gap 10 7 - 15 mmol/L 10/31/2021 7:06 AM CDT LABORATORY Glucose 67(L) 70 - 99 mg/dL 10/31/2021 7:06 AM CDT LABORATORY Calcium 8.2(L) 8.6 - 10.0 mg/dL 10/31/2021 7:06 AM CDT LABORATORY Protein Total 5.3(L) 6.4 - 8.3 g/dL 10/31/2021 7:06 AM CDT LABORATORY Albumin 3.5 3.5 - 5.2 g/dL 10/31/2021 7:06 AM CDT LABORATORY Bilirubin Total 0.6 <=1.2 mg/dL 10/31/2021 7:06 AM CDT LABORATORY Alkaline Phosphatase 41 35 - 104 U/L 10/31/2021 7:06 AM CDT LABORATORY AST 15 10 - 35 U/L 10/31/2021 7:06 AM CDT LABORATORY ALT 16 10 - 35 U/L 10/31/2021 7:06 AM CDT LABORATORY GFR Estimate >90 >60 mL/min/1.7 3m2 10/31/2021 7:06 AM CDT LABORATORY Comment:Effective February 192020 eGFRcr in adults is calculated using the 2020 CKD-EPI creatinine equation which includes age and gender (Cynthia et al., NEJM, DOI: 10.1056/RGXXhf8128391) Blood STRUCTURE OF RIGHT HAND / Unknown Venipuncture / Unknown 10/31/2021 6:17 AM CDT 10/31/2021 6:44 AM CDT us Michael Carrion DO LAB - BLOOD ORDERABLES Fi nal Result LABORATORY [facility] [address] Lab (1st floor, no room number) [place] [address], [facility] [phone] from Last 3 Months or Most Recently Relevant to Health Maintenance Advance Directives For more information, please contact: [phone] * Full Code (Latest Code Status on File) Date Activated Date Inactivated Comments 10/30/2021 1:47 AM 10/31/2021 3:35 PM All basic an d advanced life-sustaining interventions are performed as appropriate Question Answer Comments Code status determined by: Discussion with sara nt/ legal decision maker Care Teams Lapper Relationship Specialty Start Date End Date [facility], [address] [address] PCP - General 10/29/21
[2024-08-12 12:33] VITALS: BP 110/72; PULSE 60; RESP 20; TEMP 36.2; O2SAT 100; BMI 22.6
--- NOTE | 2024-08-12 12:50 | ED.GENADULT ---
HPI - General Adult General Chief complaint: Abdominal Pain Stated complaint: Vomiting since last evening 10 pm Time Seen by Provider: 08/12/24 12:21 History of Present Illness HPI narrative: This 38-year-old female comes in with persistent vomiting since last evening. She states that she had a couple drinks of alcohol which she does not normally do and has been vomiting since then. She has had symptoms like this in the past. She does use marijuana every day. She reports some abdominal pain related to vomiting. She arrives here with normal vital signs but has persistent dramatic vomiting. She did take 2 doses of Zofran ODT without any relief. Related Data Home Medications ?Medication ?Instructions ?Recorded ?Confirmed No Known Home Medications 08/12/24 08/12/24 Allergies Allergy/AdvReac Type Severity Reaction Status Date / Time latex Allergy Verified 04/05/24 18:28 Sulfa (Sulfonamide Allergy Verified 04/05/24 18:28 Antibiotics) Review of Systems Status of ROS: Reports: 10 or more systems reviewed and unremarkable except as noted in History and below Narrative: Constitutional: No fevers, no weight gain or loss. Eyes: No discharge. No vision changes. HENT: No congestion, no sore throat, no ear pain. Cardiovascular: No chest pain, no palpitations. Respiratory: No shortness of breath, no wheezes, no cough. Gastrointestinal: Vomiting with associated upper epigastric abdominal pain. No diarrhea. Genitourinary: No dysuria, no hematuria. Musculoskeletal: Normal range of motion. Skin: No rashes, no pruritis. Neurological: No dizziness, weakness, sensory change, speech change. Endo/Heme/Allergies: No bruising or bleeding. No polydipsia. Pysch: no suicidality, no anxiety, no insomnia. All other systems reviewed and are negative. [facility] Medical History Cyclic vomiting syndrome Gastroparesis Lymphocytic colitis Marijuana abuse Surgical History History of appendectomy Social History Narrative: History of chronic marijuana use. Highest level of school completed/degree received: GED or equivalent Smoking Status: Former smoker Do you use any of these nicotine containing products: None Second hand tobacco smoke exposure: No How often do you have a drink containing alcohol: monthly or less AUDIT-C Alcohol total score: 1 Non-prescribed substance use: marijuana (any form) Caffeine: Yes (pop 5-6 per day) service: No Exam Narrative: Exam Narrative: Constitutional: Well-developed, well-nourished, no acute distress. HEENT: Normocephalic, atraumatic. Neck: Normal range of motion. Nontender. Supple. Heart: Regular. No murmurs. Normal rate. Intact distal pulses. Lungs: Clear to auscultation. No chest discomfort. No wheezes, rhonchi, or rales. Abdomen: Normal bowel sounds. Nontender. No rebound tenderness. Genitalia: Deferred. Back: No midline tenderness. Normal range of motion. Extremities: Normal range of motion. No injury. Skin: Intact. No rash. Warm. No erythema or pallor. Neurologic: No altered sensation. No weakness. Alert and oriented. Psychiatric: No suicidality. No anxiety or depression. No insomnia. Nursing notes and vitals signs are reviewed. Const: Vital Signs, click to edit/add: Vital Signs - 24 hr 08/12/24 12:33 Temperature 97.1 F L Pulse Rate [Pulse Oximeter] 60 Respiratory Rate 20 Blood Pressure [Ri ght Upper Arm] 110/72 Pulse Oximetry 100 Oxygen Delivery Me thod Room Air Course Vital Signs Vital signs: Initial Vital Signs Temperature 97.1 F L 08/12/24 12:33 Temperature Source Temporal Artery Scan 08/12/24 12:33 Pulse Rate 60 08/12/24 12:33 Respiratory Rate 20 08/12/24 12:33 Blood Pressure 110/72 08/12/24 12:33 Blood Pressure Mean 84 08/12/24 12:33 Blood Pressure Position Sitting 08/12/24 12:33 Pulse Oximetry 100 08/12/24 12:33 Oxygen Delivery Method Room Air 08/12/24 12:33 Vital Signs Temperature 97.1 F L 08/12/24 12:33 Pulse Rate 60 08/12/24 12:33 Respiratory Rate 20 08/12/24 12:33 Blood Pressure 110/72 08/12/24 12:33 Pulse Oximetry 100 08/12/24 12:33 Oxygen Delivery Method Room Air 08/12/24 12:33 Temperature 97.1 F L 08/12/24 12:33 Pulse Rate 60 08/12/24 12:33 Respiratory Rate 20 08/12/24 12:33 Blood Pressure 110/72 08/12/24 12:33 Pulse Oximetry 100 08/12/24 12:33 Oxygen Delivery Method Room Air 08/12/24 12:33 Medications Administered Medications: Discontinued Medications Generic Name Dose Route Start Last Admin Trade Name Frances PRN Reason Stop Dose Admin Haloperidol Lactate 5 mg 08/12/24 12:49 08/12/24 13:19 Haloperidol 5 Mg/Ml Inj IV 08/12/24 12:50 5 mg ONCE ONE Administration Sodium Chloride 1,000 mls @ 1,000 mls/hr 08/12/24 13:00 08/12/24 13:19 0.9 % Sodium Chloride 1000 Ml IV 08/12/24 13:59 1,000 mls/hr .Q1H IZZY Administration Medical Decision Making MDM Narrative Medical decision making narrative: This patient comes in with persistent vomiting typical of cyclical vomiting syndrome. She does use marijuana regularly. She also had some alcohol last night. She states that she did take Zofran twice without any relief. An IV was established here where she received a L of normal saline and 5 mg of Haldol. This brought great relief to her symptoms. Lab results returned with reassuring findings. Her white count is elevated some but looking back at previous results this is not atypical for her. She is okay to be discharged home. Lab Data Labs: Lab Results 08/12/24 Range/Units 13:20 WBC 17.22 H (4.50-11.00) K/uL RBC 4.79 (4.00-5.20) m/uL Hgb 14.5 (12.0-16.0) gm/dL Hct 41.4 (33.0-51.0) % MCV 86 (80-100) fL MCH 30 (26-34) pg MCHC 35 (32-36) gm/dL RDW Coeff of Maria Guadalupe 11.7 (11.5-15.5) % Plt Count 381 (140-440) K/uL Neut % (Auto) 92.5 H (42.0-72.0) % Lymph % (Auto) 3.7 L (20-44) % [place] % (Auto) 3.3 (0.0-11.0) % Eos % (Auto) 0.1 (0.0-7.0) % Baso % (Auto) 0.1 (0.0-3.0) % Neut # (Auto) 15.90 H (1.7-7.0) K/uL Lymph # (Auto) 0.60 L (0.90-2.90) K/uL [place] # (Auto) 0.60 (0.00-0.90) K/UL Eos # (Auto) 0.00 (0.00-0.50) K/uL Baso # (Auto) 0.00 (0.00-0.30) K/uL Abs Immat Gran (auto) 0.10 (0.00-0.30) K/uL Imm/Tot Granulo (auto) 0.3 % Sodium 141 (135-149) mmol/L Potassium 3.5 L (3.6-5.1) mmol/L Chloride 103 (96-114) mmol/L Carbon Dioxide 23 (20-32) mmol/L Anion Gap 15 (7-15) mEq/L BUN 13 (5-24) mg/dL Creatinine 0.8 (0.5-1.5) mg/dL Estimated Creat Clear 88.38 Estimated GFR 96 ml/min Glucose 172 H (60-115) mg/dL Calcium 9.7 (8.4-10.6) mg/dL Discharge Plan Discharge Clinical Impression: Cyclical vomiting, intractable Patient Disposition: Home w/ Parent or Adult Condition: Improved Additional Instructions: Use [id number] medicines as needed and directed. Avoid marijuana and alcohol to prevent recurrence of symptoms. Follow up with MD as needed. Prescriptions: No Action No Known Home Medications Follow Up/Referrals: Nohemy Dunn MD [Primary Care Provider, Family Practice] Stand Alone Forms: [employer] Info Instructions
[2024-08-12] MEDS: HALOPERIDOL 5 MG/ML INJ IV (13:19)
[2024-08-12] MEDS: 0.9 % SODIUM CHLORIDE 1000 ml 1,000 ML IV (13:19)
[2024-08-12 13:42] LABS: Basophils Percent Auto 0.1 % (0.0-3.0); Eosinophils Percent Auto 0.1 % (0.0-7.0); Hematocrit 41.4 % (33.0-51.0); Hemoglobin* 14.5 gm/dL (12.0-16.0); Immature Granulocytes Pct Auto 0.3 %; Lymphocytes Percent Auto 3.7 % (20-44); Mean Corpuscular HGB Conc 35 gm/dL (32-36); Mean Corpuscular Hemoglobin 30 pg (26-34); Mean Corpuscular Volume 86 fL (80-100); Monocytes Percent Auto 3.3 % (0.0-11.0); Neutrophils Percent Auto 92.5 % (42.0-72.0); Platelet Count* 381 K/uL (140-440); RDW Coefficient of Variation % 11.7 % (11.5-15.5); Red Blood Count 4.79 m/uL (4.00-5.20); White Blood Count* 17.22 K/uL (4.50-11.00)
[2024-08-12 13:46] LABS: Slide Review Reflex No
[2024-08-12 13:57] LABS: Chloride* 103 mmol/L (96-114); Potassium* 3.5 mmol/L (3.6-5.1); Sodium* 141 mmol/L (135-149)
[2024-08-12 14:00] LABS: Blood Urea Nitrogen* 13 mg/dL (5-24); Creatinine* 0.8 mg/dL (0.5-1.5); Est. Creatinine Clearance* 88.38; Estimated Glomerular Filt Rate 96 ml/min
[2024-08-12 14:01] LABS: Anion Gap 15 mEq/L (7-15); Calcium* 9.7 mg/dL (8.4-10.6); Carbon Dioxide* 23 mmol/L (20-32); Glucose* 172 mg/dL (60-115)
== END 2024-08-12 14:44 | disposition home or self-care (01) ==
PROVIDERS: Emergency Provider Emergency Medicine Emergency Medical Services; PCP Family Medicine
DX: R11.15 Cyclical vomiting syndrome unrelated to migraine (principal)
CPT/HCPCS: 36415; 80048; 85025; 96374; 99283; 99284; J1630; J7030

== ENCOUNTER 2024-11-14 13:00 | Outpatient (RCR) | payer BC, SELFPAY | END 2025-03-14 23:59 | disposition home or self-care (01) | PROVIDERS: PCP Family Medicine; Visit Provider Family Medicine | DX: M54.50 Low back pain, unspecified (principal); G89.29 Other chronic pain; Z51.89 Encounter for other specified aftercare | CPT/HCPCS: 97110; 97161 ==